=== PATIENT | male | born 1955 | race Caucasian/White ===

== ENCOUNTER 2016-09-19 10:56 | Emergency (ER) | payer BC, OTHER ==
[~2016-09-19] VITALS: Ht 193 cm; Wt 84.6 kg
[~2016-09-19 10:56] MED LIST: GABA-113 PO; OXY/15 PO; PAIN PUMP; TEST1INJ3 IM; VLM5 PO; [UNRECOGNIZED DRUG - CODE] INJ
[2016-09-19 11:08] VITALS: TEMP 36.7; Ht 193 cm; Wt 84.6 kg
[2016-09-19] MEDS ORDERED: DABI150C PO (11:45)
[2016-09-19] MEDS ORDERED: SODIUM CHLORIDE 0.9% 1000ML 1,000 ML IV STA (11:45)
[2016-09-19] MEDS ORDERED: CRD200 PO (11:45)
[2016-09-19] MEDS ORDERED: TPRSR/25 PO (11:45)
[2016-09-19] MEDS ORDERED: ASPI-232 PO (11:46)
--- NOTE | 2016-09-19 11:55 | EMERGENCY ROOM VISIT NOTE ---
History Report prepared by Jewel: Roopa Benavides Under the Supervision of: Dr. Alysha Lepe M.D. First contact with patient: 11:44 Chief Complaint: CONFUSION Stated Complaint: CONFUSION, HEADACHE, DIZZY Nursing Triage Summary: HAS BEEN HAVING MEMORY PROBLEMS AND SOME CONFUSION AFTER STARTING MEDICATION History of Present Illness The patient is a 60 year old male who presents to the Emergency Room with complaints of constant confusion beginning 5 days ago. The patient states that he started taking Pradaxa 6 days ago and the day after he started taking it he began to notice that he was confused. He reports that he could not comprehend the date and the following day he notes that his memory was impaired and he couldn't remember conversations that he had the day before. The patient states that he has a history of atrial fibrillation. The patient states that he was taking his blood pressure and heart rate and was reporting it to his doctor before his doctor sent him in today. The patient complains of a headache, intermittent starry vision, sweating, intermittent chest pain, and back pain. He reports that his chest and upper back pain wakes him up at night occasionally. He denies any known fever, difficulty walking, chills, nausea, vomiting, diarrhea, rectal bleeding, abdominal pain, and neck pain. The patient' s family states that that they have noticed the patient repeating questions but they deny any facial droop and abnormal gait. He notes that he has chronic back pain that he has a pain pump for. Source of History: patient Onset: 5 days ago Position: other (global) Quality: other (confusion) Timing: constant Associated Symptoms: + headache, + chest pain, + back pain, No fevers, No chills, No neck pain, No nausea, No vomiting, No abdominal pain, No diarrhea Note: The patient complains of a intermittent starry vision, sweating. He reports that his back pain wakes him up at night occasionally. He denies any known difficulty walking, rectal bleeding. Review of Systems See HPI for pertinent positives & negatives. A total of 10 systems reviewed and were otherwise negative. Past Medical & Surgical Medical Problems: (1) Cervical stenosis of spinal canal (2) Failed spinal cord stimulator (3) Neuropathic pain Surgical Problems: (1) History of lumbar surgery Family History No pertinent family history stated. Social History Smoking Status: Former Smoker Alcohol Use: none Marital Status: Housing Status: lives with family Current/Historical Medications Scheduled Amiodarone HCl (Amiodarone HCl), 1 TAB PO DAILY Aspirin (Aspir-81), 1 TAB PO DAILY Dabigatran Etexilate Mesylate (Pradaxa), 1 CAP PO BID Metoprolol Succinate (Metoprolol Succinate ER), 2 TAB PO HS Testosterone Enanthate (Testosterone Enanthate), 100 MG IM WK Scheduled PRN Oxycodone Hcl (Oxycodone Hcl), 15-30 MG PO QID PRN for Pain Miscellaneous Medications [Pain Pump] Durable Medical Equipment Syringe/Needle (Disp) 3 Ml (Bd Integra Syringe/3ML/23), DOSE INJ Allergies Coded Allergies: Chlorhexidine (Verified Allergy, Unknown, red and itchy skin, 09/19/16) Physical Exam Vital Signs Date Time Temp Pulse Resp B/P (MAP) Pulse Ox O2 Delivery O2 Flow Rate FiO2 09/19/16 14:50 81 16 132/98 98 09/19/16 12:41 88 16 135/86 97 Room Air 09/19/16 12:14 83 09/19/16 11:59 92 16 135/92 97 Room Air 09/19/16 11:08 36.7 80 18 169/90 97 Room Air Physical Exam Vital signs reviewed. General: Well-appearing, in no significant distress. HEENT: No scleral icterus, PERRLA, neck supple. Atraumatic. Cardiovascular: Irregular and rate controlled, no extra sounds. Pulmonary: Clear to auscultation bilaterally, normal work of breathing. Abdomen: Soft, nontender, nondistended, positive bowel sounds. Musculoskeletal: Atraumatic, no peripheral edema. Neurologic: Patient awake alert and oriented x 3, full strength in all 4 extremities. Cranial nerves 2 through 12 grossly intact. Answering all questions appropriately. Cerebellar exam is intact. Skin: Warm, dry, no rash. Medical Decision & Procedures ER Provider Diagnostic Interpretation: Radiology results as stated below per my review and radiologist interpretation: CT SCAN OF THE BRAIN WITHOUT IV CONTRAST FINDINGS: Brain parenchyma: There is minimal subcortical and periventricular microangiopathic change. There is no hemorrhage, mass effect, or evidence of acute territorial ischemia by CT criteria. Talbot-white matter is preserved. No extra-axial fluid collection is seen. Ventricles, sulci, cisterns: Normal in configuration. Intracranial vasculature: There is minimal atherosclerotic calcification of the cavernous carotid arteries. Calvarium: Unremarkable. Sinuses and mastoids: The visualized paranasal sinuses are clear. The mastoid air cells are well pneumatized. Orbits: The bony orbits are grossly intact. IMPRESSION: There is no hemorrhage, mass effect, or evidence of acute territorial ischemia by CT criteria. Electronically signed by: Willy Mchugh M.D. 09/19/2016 12:15 PM Dictated Date/Time: 09/19/2016 12:13 PM SINGLE VIEW CHEST FINDINGS: 2 AP, portable, upright chest radiographs are compared to study dated 08/14/2015. The examination is degraded by portable technique and patient rotation. The heart is enlarged and there is atherosclerotic calcification of the thoracic aorta. The pulmonary vasculature is noncongested. Findings suggest emphysema. Nonspecific interstitial thickening is similar to previous. No airspace consolidation, large pleural effusion, or pneumothorax is seen. The bony thorax is grossly intact. Fusion hardware is seen in the lower cervical spine. IMPRESSION: Cardiac enlargement and suspect emphysema. There is no acute cardiopulmonary abnormality. Electronically signed by: Willy Mchugh M.D. 09/19/2016 12:25 PM Dictated Date/Time: 09/19/2016 12:24 PM Laboratory Results 09/19/16 11:45 Red Blood Count 5.36, Mean Corpuscular Volume 92.0, Mean Corpuscular Hemoglobin 31.5, Mean Corpuscular Hemoglobin Concent 34.3, Mean Platelet Volume 10.4, Neutrophils (%) (Auto) 79.4, Lymphocytes (%) (Auto) 10.1, Monocytes (%) (Auto) 8.4, Eosinophils (%) (Auto) 0.8, Basophils (%) (Auto) 1.1, Neutrophils # (Auto) 4.18, Lymphocytes # (Auto) 0.53, Monocytes # (Auto) 0.44, Eosinophils # (Auto) 0.04, Basophils # (Auto) 0.06 09/19/16 11:45 Test 09/19/16 11:45 White Blood Count 5.26 K/uL (4.8-10.8) Red Blood Count 5.36 M/uL (4.7-6.1) Hemoglobin 16.9 g/dL (14.0-18.0) Hematocrit 49.3 % (42-52) Mean Corpuscular Volume 92.0 fL (80-100) Mean Corpuscular Hemoglobin 31.5 pg (25-34) Mean Corpuscular Hemoglobin Concent 34.3 g/dl (32-36) Platelet Count 193 K/uL (130-400) Mean Platelet Volume 10.4 fL (7.4-10.4) Neutrophils (%) (Auto) 79.4 % Lymphocytes (%) (Auto) 10.1 % Monocytes (%) (Auto) 8.4 % Eosinophils (%) (Auto) 0.8 % Basophils (%) (Auto) 1.1 % Neutrophils # (Auto) 4.18 K/uL (1.4-6.5) Lymphocytes # (Auto) 0.53 K/uL (1.2-3.4) Monocytes # (Auto) 0.44 K/uL (0.11-0.59) Eosinophils # (Auto) 0.04 K/uL (0-0.5) Basophils # (Auto) 0.06 K/uL (0-0.2) RDW Standard Deviation 44.8 fL (36.4-46.3) RDW Coefficient of Variation 13.3 % (11.5-14.5) Immature Granulocyte % (Auto) 0.2 % Immature Granulocyte # (Auto) 0.01 K/uL (0.00-0.02) Prothrombin Time 14.4 SECONDS (9.0-12.0) Prothromb Time International Ratio 1.3 (0.9-1.1) Activated Partial Thromboplast Time 44.9 SECONDS (21.0-31.0) Partial Thromboplastin Ratio 1.7 Anion Gap 9.0 mmol/L (3-11) Est Creatinine Clear Calc Drug Dose 85.5 ml/min Estimated GFR () 84.1 Estimated GFR (Non- 72.6 BUN/Creatinine Ratio 14.5 (10-20) Calcium Level 8.6 mg/dl (8.5-10.1) Magnesium Level 2.2 mg/dl (1.8-2.4) Total Bilirubin 2.6 mg/dl (0.2-1) Direct Bilirubin 0.4 mg/dl (0-0.2) Aspartate Amino Transf (AST/SGOT) 26 U/L (15-37) Alanine Aminotransferase (ALT/SGPT) 36 U/L (12-78) Alkaline Phosphatase 82 U/L (45-117) Troponin I < 0.015 ng/ml (0-0.045) Total Protein 6.9 gm/dl (6.4-8.2) Albumin 3.8 gm/dl (3.4-5.0) Laboratory results per my review. Medications Administered Medications (Trade) Dose Ordered Sig/Maco Route Start Time Stop Time Status Last Admin Dose Admin Sodium Chloride 1,000 ml @ 125 mls/hr Q8H STAT IV 09/19/16 11:45 09/19/16 15:05 DC 09/19/16 12:41 125 MLS/HR ECG Indication: chest pain Rate (beats per minute): 93 Rhythm: atrial flutter Findings: RBBB (incomplete), left axis deviation, other (variable AV block, t wave flattening bilaterally) ED Course 1144: Past medical records reviewed. The patient was evaluated in room B10. A complete history and physical examination was performed. 1145: Sodium Chloride 1000 ml @ 125 mls/hr IV. 1412: I reviewed the patient's case with Dr. Irby of Cardiology at [facility]. He said to stop the amiodarone and increase the metoprolol. He confirms that the patient is on a significant amount of narcotics for pain control. 1432: Upon reevaluation, the patient appeared to have improvement of his symptoms. I discussed findings with the patient. He verbalized agreement of the treatment plan. The patient was discharged home. Medical Decision Differential diagnosis: Etiologies such as metabolic, infection, hypoglycemia, electrolyte abnormalities , cardiac sources, intracerebral event, toxicologic, neurologic, as well as others were entertained. This pt was evaluated and appeared to be in no distress. IV access was obtained and lab work was drawn. Pt was hydrated with NSS. EKG reveals a rate controlled atrial flutter. CXR is clear. CT head reveals no acute intracranial abnl. Case was d/w Dr Butts, at this time the pt will be taken off of amiodarone and metoprolol will be increased. Pt is apparently on significant doses of narcotics which is likley contributing to the symptoms. Pt will f.u closely with PCP and Dr Butts for further management. He will return to the ED for worsening of symptoms or any medical concerns. Consults Time Called: 1410 Consulting Physician: Dr. Irby - Cardiology Returned Call: 1410 I reviewed the patient's case with Dr. Irby of Cardiology at [facility]. He said to stop the amiodarone and increase the metoprolol. He confirms that the patient is on a significant amount of narcotics for pain control. Impression Primary Impression: Altered mental status Scribe Attestation The scribe's documentation has been prepared under my direction and personally reviewed by me in its entirety. I confirm that the note above accurately reflects all work, treatment, procedures, and medical decision making performed by me. Departure Information Dispostion Home / Self-Care Referrals Abner Wetzel M.D. (PCP) Forms HOME CARE DOCUMENTATION FORM, IMPORTANT VISIT INFORMATION, WORK / SCHOOL INSTRUCTIONS Patient Instructions My [facility] Additional Instructions Diagnosis: Altered mental status Discontinue the amiodarone. Increase the metoprolol succinate to 75 mg once daily. Continue Pradaxa and aspirin as prescribed. Follow-up with cardiology this week for reevaluation, contact sooner if symptoms persist. Return to the ED for worsening of symptoms or any medical concerns,
[2016-09-19 12:00] LABS: BASO % 1.1 %; BASO ABS # 0.06 K/uL (0-0.2); COMPLETE YES; EOS % 0.8 %; HEMATOCRIT 49.3 % (42-52); IG% 0.2 %; LYMPH % 10.1 %; LYMPH ABS # 0.53 K/uL (1.2-3.4); MEAN CORPUSCULAR HEMOGLOBIN 31.5 pg (25-34); MEAN CORPUSCULAR HGB CONC 34.3 g/dl (32-36); MEAN PLATELET VOLUME 10.4 fL (7.4-10.4); MONO % 8.4 %; NEUT % 79.4 %; PLATELET COUNT 193 K/uL (130-400); RED BLOOD COUNT 5.36 M/uL (4.7-6.1); WHITE BLOOD COUNT 5.26 K/uL (4.8-10.8)
[2016-09-19 12:10] LABS: INR 1.3 (0.9-1.1); PARTIAL THROMBOPLASTIN RATIO 1.7; PROTHROMBIN TIME (PATIENT) 14.4 SECONDS (9.0-12.0)
--- NOTE | 2016-09-19 12:16 | DIAGNOSTIC IMAGING REPORT ---
CT SCAN OF THE BRAIN WITHOUT IV CONTRAST CLINICAL HISTORY: Change in mental status. COMPARISON STUDY: CT of the brain dated 11/11/2008. TECHNIQUE: Unenhanced axial CT scan of the brain is performed from the vertex to the skull base. CT DOSE: 614.27 mGy.cm FINDINGS: Brain parenchyma: There is minimal subcortical and periventricular microangiopathic change. There is no hemorrhage, mass effect, or evidence of acute territorial ischemia by CT criteria. Talbot-white matter is preserved. No extra-axial fluid collection is seen. Ventricles, sulci, cisterns: Normal in configuration. Intracranial vasculature: There is minimal atherosclerotic calcification of the cavernous carotid arteries. Calvarium: Unremarkable. Sinuses and mastoids: The visualized paranasal sinuses are clear. The mastoid air cells are well pneumatized. Orbits: The bony orbits are grossly intact. IMPRESSION: There is no hemorrhage, mass effect, or evidence of acute territorial ischemia by CT criteria. Electronically signed by: Willy Mchugh M.D. 09/19/2016 12:15 PM Dictated Date/Time: 09/19/2016 12:13 PM
--- NOTE | 2016-09-19 12:27 | DIAGNOSTIC IMAGING REPORT ---
SINGLE VIEW CHEST CLINICAL HISTORY: Change in mental status. FINDINGS: 2 AP, portable, upright chest radiographs are compared to study dated 08/14/2015. The examination is degraded by portable technique and patient rotation. The heart is enlarged and there is atherosclerotic calcification of the thoracic aorta. The pulmonary vasculature is noncongested. Findings suggest emphysema. Nonspecific interstitial thickening is similar to previous. No airspace consolidation, large pleural effusion, or pneumothorax is seen. The bony thorax is grossly intact. Fusion hardware is seen in the lower cervical spine. IMPRESSION: Cardiac enlargement and suspect emphysema. There is no acute cardiopulmonary abnormality. Electronically signed by: Willy Mchugh M.D. 09/19/2016 12:25 PM Dictated Date/Time: 09/19/2016 12:24 PM
[2016-09-19 12:31] LABS: BUN/CREATININE RATIO 14.5 (10-20); CALCIUM 8.6 mg/dl (8.5-10.1); CREATININE 1.1 mg/dl (0.60-1.40); MAGNESIUM 2.2 mg/dl (1.8-2.4); POTASSIUM 4.6 mmol/L (3.5-5.1)
[2016-09-19 14:50] VITALS: BP 132/98; PULSE 81; O2SAT 98
== END 2016-09-19 14:52 | disposition home or self-care (01) ==
LOC: C.EDB 10:58
DX: R41.82 Altered mental status, unspecified (principal); I48.92 Unspecified atrial flutter; Z98.890 Other specified postprocedural states; Z87.891 Personal history of nicotine dependence; Z79.82 Long term (current) use of aspirin; Z79.899 Other long term (current) drug therapy; Z88.8 Allergy status to other drugs, medicaments and biological substances

== ENCOUNTER → 2016-11-11 | Outpatient (CLI) | payer BC ==
[~2016-11-11] MED LIST changes: +ASPI-232 PO; +CRD200 PO; +DABI150C PO; -GABA-113 PO; +OPTIRAY 320 IV PRN; +TPRSR/25 PO; -VLM5 PO
--- NOTE | 2016-11-11 12:33 | DIAGNOSTIC IMAGING REPORT ---
ABD/PELVIS COMBO CLINICAL HISTORY: 60 years-old Male presenting with WEIGHT LOSS,ANOREXIA,ABD PAIN W/EATING. TECHNIQUE: Multidetector CT of the abdomen and pelvis was performed before and after the administration of intravenous contrast. IV contrast: 120 mL of Optiray 320. A dose lowering technique was used consistent with the principles of ALARA (as low as reasonably achievable). COMPARISON: None. CT DOSE (mGy.cm): The estimated cumulative dose is 2622.93 mGycm. FINDINGS: Supervisor Front topogram: Posterior fusion hardware in the lower lumbar spine. External devices project over the right lower quadrant. Lung bases: Lung bases clear. No pericardial or pleural effusion. Liver: Normal morphology. No liver lesion. Patent hepatic vasculature. Biliary: Mild intrahepatic and extra hepatic biliary ductal dilatation, which may in part be due to a reservoir effect in the post cholecystectomy state. Surgically absent gallbladder. Pancreas: Dilatation of the pancreatic duct to the level of the ampulla of Vater. No evidence of calculus in the region of the ampulla Vater. No demonstrable mass lesion in the pancreatic head. Spleen: Normal. Adrenal glands: Normal. Kidneys and ureters: Normal. No hydronephrosis. Gastrointestinal tract: Normal. No bowel obstruction. Peritoneal cavity: Trace free fluid in the pelvis. Bladder: Mild circumferential bladder wall thickening. Pelvic organs: Prostate enlargement likely secondary to benign prostatic hyperplasia. Vasculature: Minimal atherosclerosis of the normal caliber abdominal aorta. Lymph nodes: No enlarged lymph nodes in the abdomen or pelvis. Abdominal wall: Serpiginous soft tissue in the inguinal canal suggestive of varicoceles. Subcutaneous medical office specialist in the right lower quadrant with an epidural lead entering the spinal canal the lumbar region. Musculoskeletal: Posterior transpedicular bilateral screw and yahaira fixation of L4-S1 with laminectomy of L5 and interbody spacer at L5-S1. Degenerative changes of the lumbar region. IMPRESSION: 1. Biliary and pancreatic ductal dilatation without evidence of the pancreatic head. Differential considerations include benign stricture of the ampulla of Vater. Further evaluation with ERCP could be considered as clinically warranted. 2. Mild circumference of bladder wall thickening could represent chronic outlet obstruction. 3. Possible varicoceles. Electronically signed by: Sameer Gallegos M.D. 11/11/2016 12:31 PM Dictated Date/Time: 11/11/2016 12:21 PM
== END | disposition home or self-care (01) ==
LOC: C.CTS 11:46
PROVIDERS: ATTEND Internal Medicine Gastroenterology
DX: R17 Unspecified jaundice (principal)

== ENCOUNTER → 2017-05-06 | Outpatient (CLI) | payer BC, OTHER ==
[~2017-05-06] MED LIST changes: +ASPCH81X PO; +LOSA1TAB PO; +METO-217 PO; -OPTIRAY 320 IV PRN
== END | disposition home or self-care (01) ==
LOC: C.RDSM 09:55
PROVIDERS: ATTEND Orthopaedic Surgery Sports Medicine
DX: G56.01 Carpal tunnel syndrome, right upper limb (principal)

== ENCOUNTER → 2017-05-09 | Day surgery (SDC) | payer OTHER ==
[2017-05-08 14:49] VITALS: Ht 193 cm; Wt 86.4 kg
[~2017-05-09] VITALS: Ht 193 cm; Wt 86.4 kg
[~2017-05-09] MED LIST changes: -ASPI-232 PO; +ATROPINE SULFATE 0.1 MG/ML 5ML SYR IV PRN; +BUPIVACAINE/EPINEPHRINE 0.5% MPF 1:200,000 30 ML VIAL ONE; +CEFAZOLIN 2000MG IV PUSH 10 ML IV SCH; -CRD200 PO; -DABI150C PO; +DEXAMETHASONE SOD INJ 4 MG/ML VIAL IV PRN; +EpHEDrine SULFATE INJ 50 MG/ML AMP IV PRN; +EpHEDrine SULFATE INJ 50 MG/ML AMP ONE; +FENTANYL CITRATE INJ 50 MCG/1 ML 2 ML VIAL IV PRN; +FENTANYL CITRATE INJ 50 MCG/1 ML 2 ML VIAL ONE; +KETOROLAC TROMETHAMINE 30 MG/ML VIAL IV. PRN; +LABETALOL HCL IV 5 MG/ML 20ML IV PRN; +LACTATED RINGER'S 1000ML 1,000 ML IV SCH; +LIDOCAINE HCL 1% 20 ML VIAL ONE; +LIDOCAINE HCL 2% 2 ML VIAL (20MG/ML) ONE; +METOCLOPRAMIDE HCL INJ 5 MG/ML 2 ML VIAL IV PRN; +MIDAZOLAM HCL 1 MG/ML 2ML VIAL ONE; +MoRPHine SULFATE 10 MG/ML CARP/VIAL IV PRN; +MoRPHine SULFATE 2 MG/ML CARP IV PRN; +MoRPHine SULFATE 4 MG/ML 1 ML CARP\\VIAL IV PRN; +ONDANSETRON INJ 2 MG/ML 2 ML VIAL IV PRN; +OXYCODONE/ACETAMINOPHEN 5-325 TAB PO PRN; +PHENYLEPHRINE 100MCG/ML 5ML SYR IV PRN; +PROPOFOL IV EMULSION 10 MG/ML 20 ML VIAL IV ONE; +SODIUM CHLORIDE 0.9% INJ 10 ML VIAL ONE; -TPRSR/25 PO; -[UNRECOGNIZED DRUG - CODE] INJ
--- NOTE | 2017-05-09 12:21 | History & Physical Bridge - SC ---
H&P Re-Evaluation Bridge Note: I have examined the patient, reviewed the History & Physical and in the interval since the performance of the History & Physical I have noted the following changes of clinical significance: No changes noted
--- NOTE | 2017-05-09 13:07 | Discharge Instructions-SurgCtr ---
Discharge Instructions Date of Service May 09, 2017. Visit Reason for Visit: Right Carpal Tunnel Syndrome Discharge Discharge Diagnosis / Problem: Status post right endoscopic Carpal Tunnel Release Discharge Goals Goal(s): Decrease discomfort, Improve function, Increase independence Medications Stopped Medications Name(s): asa stopped. last dose 3 days ago. Activity Recommendations Activity Limitations: per Instructions/Follow-up section Exercise/Sports Limitations: rest today (No heavy lifting 2 weeks) May Resume Sexual Activity: when tolerated Shower/Bathe: may shower/bathe in 3 days Driving or Machine Use: Not while on Narcotics Anesthesia . Post Anesthesia Instructions: If you have had General Anesthesia or IV Sedation: * Do not drive today. * Resume driving when surgeon permits. * Do not make important decisions or sign legal documents today. * Call surgeon for: 1. Temperature elevations greater than 101 degrees F. 2. Uncontrollable pain. 3. Excessive bleeding. 4. Persistent nausea and vomiting. 5. Medication intolerance (nausea, vomiting or rash). * For nausea and vomiting use only clear liquids such as: tea, soda, bouillon until nausea subsides, then gradually increase diet as tolerated. * If you have any concerns or questions, call your surgeon's office. If physician is unavailable and it is an emergency, call 911 or go to the nearest emergency room. . Instructions / Follow-Up Instructions / Follow-Up Dr. Carlisle in 10-15 days. PT in 3-5 days. Diet Recommendations Home Diet: resume previous diet Procedures Procedures Performed: Right Endoscopic Carpal Tunnel Release Pending Studies Studies pending at discharge: no Medical Emergencies . Who to Call and When: Medical Emergencies: If at any time you feel your situation is an emergency, please call 911 immediately. . Non-Emergent Contact Non-Emergency issues call your: Surgeon Call Non-Emergent contact if: temperature is above 101.5, your pain is not controlled, wound has increased drainage, wound has increased redness . . "Provider Documentation" section prepared by Stanford Carlisle. .
--- NOTE | 2017-05-09 13:08 | [facility] Post Operative Brief Note ---
Immediate Operative Summary Operative Date May 09, 2017. Pre-Operative Diagnosis Right Carpal Tunnel Syndrome Post-Operative Diagnosis same Procedure(s) Performed Right Endoscopic Carpal Tunnel Release Surgeon Dr. Carlisle Foreign Exchange Services Manager Surgeon(s) Mellisa Roberts , Fellow Estimated Blood Loss 2ML Findings Consistent with Post-Op Diagnosis Fluids (cc crystalloids) 900 Specimens NONE Drains None Anesthesia Type MAC Complication(s) none Disposition Disposition: Recovery Room / PACU (Stable)
--- NOTE | 2017-05-09 13:09 | [facility] Operative Report ---
Operative Report Operative Date May 09, 2017. Pre-Operative Diagnosis Right Carpal Tunnel Syndrome Post-Operative Diagnosis same Procedure(s) Performed Right Endoscopic Carpal Tunnel Release Surgeon Dr. Carlisle Boiler Fitter Surgeon(s) Mellisa Roberts , Fellow Estimated Blood Loss 2ML Findings Thickened Right Transverse Carpal Ligament. Fluids (cc crystalloids) 900 Specimens NONE Drains n/a Anesthesia Local + sedation Complication(s) None Disposition Recovery Room / PACU (Stable) Implants n/a Indications The patient is a 61 year old male with long standing right carpal tunnel syndrome that has failed conservative treatment. I recommended endoscopic right carpal tunnel release. The patient understands the risks of surgery, which include but are not limited to: bleeding, infection, re-operation, damage to nerves and arteries, continued pain, and stiffness. The patient understands all of these instructions and explanations, all of their questions have been satisfactorily addressed. The patient has elected to proceed with surgery and the informed consent was signed. Description of Procedure The patient was taken to the Operating Room and placed in the supine position on the operating table. After adequate sedation was administered a multidisciplinary time-out was performed identifying my initials on the right upper extremity as the correct and operative limb. Prior to the incisions being made, 2 grams of intravenous Ancef were given. The right upper extremity was prepped and draped in the usual orthopaedic sterile fashion. A Median nerve block was performed in the standard manner, along with superficial injection of the planned incisions with 10 cc of a 50:50 mix of 1% Lidocaine plain and 0.5% Bupivacaine plain. The Pisiform was marked and the planned transverse incision was marked 0.5 cm proximal and 1.5 cm radial, approximately 1 cm in length. An Esmarch was used to exsanguinate the limb and the tourniquet was inflated to 250mmHg. The planned exit portal was made in- line with the Ring Finger crossing Caplans line. The Transverse incision was carried down through the skin and blunt dissect was carried down through the fascia, protecting any superficial vessels. A freer was used to expose the carpal tunnel to the point of the distal exit portal. The slotted cannula was introduced from proximal to distal and the exit portal was incised and the slotted cannula was delivered out the exit portal. The hand was placed on the extension bump. The arthroscope was placed from proximal to distal to view the Transverse Carpal Ligament (TCL). Multiple Q-tips were used for better exposure. The most distal aspect of the TCL was incised with forward cutting blade. Then the Triangular blade was used to incise the TCL in the mid-portion. The retrograde scalpel was used to connect the two incisions in the TCL. At this point the arthroscope was switched to view from the distal to proximal and the proximal portion of the TCL was incised. Care was taken not incise the skin. The forward cutting blade was used to incise the proximal portion. Then the retrograde blade connected the two incisions in the TCL. The triangular blade was used to incise any remaining fibers of the TCL. The entire release was visualized with the arthroscope. The wounds were copiously irrigated. The trocar was replaced prior to removing the cannula. Both portals were closed with 3-0 Nylon. The incisions were dressed with Xeroform gauze, sterile gauze, sterile Webril, and an ANH bandage. The sponge and needle counts were correct. The patient was taken to the recovery room in stable condition. Post-op Instructions: Pain medicine prescription was given pre-operatively to be taken as needed. The patient will elevate and ice. No heavy lifting with his right upper extremity. The patient will follow up with me in 10-15 days. While waking up the patient motor was assessed and he had full function of his median, radial, ulnar, AIN, and PIN, he had opposition of his thumb to his small finger. I attest to the content of the Intraoperative Record and any orders documented therein. Any exceptions are noted below.
[2017-05-09 13:14] VITALS: TEMP 36.8
--- NOTE | 2017-05-09 13:31 | Anesthesia Progress Nt - [facility] ---
Anesthesia Post Op Note Date & Time May 09, 2017 at 13:31 Vital Signs Pain Intensity: 0 Vital Signs Past 12 Hours Date Time Temp Pulse Resp B/P (MAP) Pulse Ox O2 Delivery O2 Flow Rate FiO2 05/09/17 13:14 36.8 64 16 103/55 (71) 95 Room Air 05/09/17 10:59 36.8 65 16 107/66 (80) 98 Room Air Notes Mental Status: alert / awake / arousable, participated in evaluation Pt Amnestic to Procedure: Yes Nausea / Vomiting: adequately controlled Pain: adequately controlled Airway Patency, RR, SpO2: stable & adequate BP & HR: stable & adequate Hydration State: stable & adequate Anesthetic Complications: no major complications apparent
[2017-05-09 13:39] VITALS: BP 111/65; PULSE 61; O2SAT 98
== END | disposition home or self-care (01) ==
LOC: X.SURG 10:47
PROVIDERS: ATTEND Orthopaedic Surgery Sports Medicine
DX: G56.01 Carpal tunnel syndrome, right upper limb (principal); G47.33 Obstructive sleep apnea (adult) (pediatric)

== ENCOUNTER 2018-09-15 10:02 | Observation (INO) ==
--- NOTE | 2018-09-10 13:14 | History & Physical Report ---
Date of Service September 10, 2018 Assessment & Plan (1) Acute drug withdrawal syndrome: (2) Presence of intrathecal pump: As the patient has been experiencing acute withdrawal symptoms over the last 3 weeks, there have been several tests performed. Thoracolumbar xray is unremarkable. A catheter dye study was attempted but could not aspirate from the port on several attempts. MRI was negative for a granuloma. We have had a thorough discussion on other causes for withdrawal and it has been agreed on to revise/replace the intrathecal catheter. Intrathecal pump may require replacement as well. Risks have been discussed including CSF leak, bleeding, and injury to nerves. Surgery has been described and he would like to proceed. History of Present Illness Chief Complaint: Chronic lumbar pain Primary Care Provider: Abner Wetzel MD Mr. Schafer is a 62 year old white male that has been seen by the [facility] for acute withdrawal of an intrathecal pump. For 3 weeks he has been experiencing withdrawal symptoms of nausea, chills, irritability, difficulty sleeping, increased pain, excessive yawning, and photophobia. Patient had the intrathecal pump and catheter delivery system [place] [address] Ivey for lumbar post-laminectomy syndrome. Dr. Villafana is currently performing his pump refills. Pain is rated 4/10 at its best and 8/10 at its worst. The intrathecal pump is set to deliver Hydromorphone 15mg/day and Bupivacaine 7.5mg/day. He does also chronically take oral Oxycodone 15mg 4 times daily. He denies any radicular symptoms, fevers, diarrhea, constipation, dizziness, urinary sx, falls. Allergies Allergy/AdvReac Type Severity Reaction Status Date / Time chlorhexidine Allergy Mild red and Verified 09/10/18 13:39 itchy skin Home Medications Home Medications Medication Instructions Recorded Confirmed Type clonidine HCl 0.2 mg PO BID 09/04/18 09/10/18 History ibuprofen 200 mg PO Q6H PRN 09/04/18 09/10/18 History losartan 25 mg PO QAM 09/04/18 09/10/18 History metoprolol succinate 50 mg PO BID 09/04/18 09/10/18 History naloxone [Narcan] 1 sprays INTNAS ONCE PRN #2 ea 09/04/18 09/10/18 Rx testosterone cypionate 0.5 mg IM WK 09/04/18 09/10/18 History aspirin 81 mg tablet,delayed 81 mg PO QAM 09/10/18 09/10/18 History release morphine ER 30 mg tablet,extended 30 mg PO Q8H #21 tab 09/10/18 09/10/18 Rx release oxycodone 15 mg tablet 15 mg PO Q6H PRN #30 tab 09/10/18 09/10/18 Rx Past Med/Surg History Medical History Difficult airway for intubation 09/04/15 - Glidescope #4, ETT #8.0, Neck kept in neutral position 02/03/13 - Glidescope #4, ETT #7.5 Atrial fibrillation IN THE PAST Acute drug withdrawal syndrome (Acute) Neuropathic pain Cervical stenosis of spinal canal Failed spinal cord stimulator Surgical History H/O cardiac radiofrequency ablation 2 YEARS AGO AT [facility] WITH DR. HUBER MENDOZA History of adenoidectomy History of tonsillectomy History of tooth extraction History of appendectomy History of cholecystectomy History of colonoscopy History of esophagogastroduodenoscopy (EGD) S/P insertion of spinal cord stimulator INSERTION AND REMOVAL Fusion of spine LUMBAR FUSION X 1 CERVICAL FUSION X 2 (ROM OF NECK WNL) 09/04/15 - Glidescope #4, ETT #8.0, Neck kept in neutral position History of carpal tunnel release RT/LEFT History of surgery IMPLANTED PAIN PUMP Presence of intrathecal pump Cervical vertebral fusion 02/03/13 - Glidescope #4, ETT #7.5 S/P lumbar spine operation Family History Other No significant family history Social History Preferred Language: [place] Communication Ability: Effective Visual Impairment: No Limitations Hearing Ability: Normal Beliefs That Will Affect Care: None marital status: Current Living Situation: Spouse current occupational status: employed Feels Safe at Home: Yes Smoking Status: Former smoker Tobacco Type: cigarettes Cigarettes Per Day: ~1ppd x 15 years Second Hand Exposure: No Hx Alcohol Use: No Hx Substance Use: No Review of Systems Review of Systems: All systems reviewed & are unremarkable except as noted in HPI & below Physical Exam Physical Exam: GENERAL: Thin 62 year old white male. Speech and cognition is intact. Mood and affect is appropriate. In no acute distress. HEAD: Normocephalic; atraumatic. EYES: Pupils are round, equal, and reactive to light; EOM intact. ENT: No external ear discharge or lesions. No rhinorrhea or epistaxis. No mucosal lesions. NECK: Decreased ROM; trachea is midline; no cervical lymphadenopathy. CARDIO: Regular rate and rhythm. No murmurs, rubs, or gallops. PULM: Clear to auscultation. No wheezes, rales, or rhonchi. CHEST: Regular chest respiration and excursion. ABDOMEN: Intrathecal pump is located in the RLQ without any mobility noted. EXTREMITIES: 5/5 strength of the bilateral upper and lower extremities. BACK: Well healed surgical incision. Mild diffuse lumbosacral tenderness. No paravertebral, quadratus lumborum, gluteal, or piriformis muscle spasm or myoneural trigger points noted. NEURO: CN II-XII grossly intact with no focal deficits noted. Normal gait. SKIN: No lesions, erythema, or rashes noted.
--- NOTE | 2018-09-10 14:08 | Anesthesiology Consultation ---
Date of Service September 10, 2018 Assessment & Plan (1) Encounter for pre-operative examination: - Patient has a known history of difficult intubation requiring glidescope #4 due to limited ROM from previous cervical fusion. Chart Review Chart Review: Acceptable Risk for Surgery and Patient seen in Pre Admission Testing Consults Requested none Teaching & Discussion Pre-Anesthesia Teaching/Discussion Notes: Instructed NPO after midnight before surgery, except medications with 15 cc of water. Medication instructions provided according to the PAT guidelines. History Surgery Operation Date: 09/15/18 10:20 Proposed Procedures p Revision or Replacement of Intrathecal Catheter - Kavita Alvarez DO Height/Weight Height: 6 ft 4 in Weight: 80.3 kg Allergies Allergy/AdvReac Type Severity Reaction Status Date / Time chlorhexidine Allergy Mild red and Verified 09/10/18 13:39 itchy skin Medications Home Medications Medication Instructions Recorded Confirmed Last Taken clonidine HCl 0.2 mg PO BID 09/04/18 09/10/18 09/04/18 ibuprofen 200 mg PO Q6H PRN 09/04/18 09/10/18 09/04/18 12:00 800mg losartan 25 mg PO QAM 09/04/18 09/10/18 09/04/18 metoprolol succinate 50 mg PO BID 09/04/18 09/10/18 09/04/18 naloxone [Narcan] 1 sprays INTNAS ONCE PRN #2 ea 09/04/18 09/10/18 Unknown testosterone cypionate 0.5 mg IM WK 09/04/18 09/10/18 09/04/18 aspirin 81 mg tablet,delayed 81 mg PO QAM 09/10/18 09/10/18 Unknown release morphine ER 30 mg tablet,extended 30 mg PO Q8H #21 tab 09/10/18 09/10/18 Unknown release oxycodone 15 mg tablet 15 mg PO Q6H PRN #30 tab 09/10/18 09/10/18 Unknown Past Medical History Medical History Acute drug withdrawal syndrome (Acute) Neuropathic pain (Chronic) Cervical stenosis of spinal canal (Chronic) Failed spinal cord stimulator (Chronic) Atrial fibrillation IN THE PAST Difficult airway for intubation 09/04/15 - Glidescope #4, ETT #8.0, Neck kept in neutral position 02/03/13 - Glidescope #4, ETT #7.5 Exercise / Class Metabolic Activity III < 4 Walking/Shop/Light housework (Very limited due to current amount of back pain. Is able to be more active when pump is functioning. Able to climb FOS. Denies CP or SOB. ) Past Family History Family History Other No significant family history Past Surgical History Surgical History Presence of intrathecal pump (Chronic) Cervical vertebral fusion (Chronic) 02/03/13 - Glidescope #4, ETT #7.5 S/P lumbar spine operation (Chronic) Fusion of spine LUMBAR FUSION X 1 CERVICAL FUSION X 2 (ROM OF NECK WNL) 09/04/15 - Glidescope #4, ETT #8.0, Neck kept in neutral position H/O cardiac radiofrequency ablation 2 YEARS AGO AT [facility] WITH DR. HUBER MENDOZA History of adenoidectomy History of appendectomy History of carpal tunnel release RT/LEFT History of cholecystectomy History of colonoscopy History of esophagogastroduodenoscopy (EGD) History of surgery IMPLANTED PAIN PUMP History of tonsillectomy History of tooth extraction S/P insertion of spinal cord stimulator INSERTION AND REMOVAL Past Anesthesia History No Hx of Anesthesia Complications and No Family Hx of Anesthesia Complications History of PONV No Hx of PONV and No Hx of Motion Sickness Social History Smoking Status: Former smoker tobacco type: cigarettes Smoking cigarettes per day: ~1ppd x 15 years Do You Dip or Chew Tobacco: No Smoking End Date: 30 YEARS AGO Hx Alcohol Use: No Hx Substance Use: No substance use type: does not use Review of Systems Patient denies chest pain, shortness of breath, dyspnea on exertion, reflux, cough, wheezing, palpitations. +Joint Pain (Back) Physical Exam Vital Signs BP: 144/76 P: 56 R: 16 T: 98.7 SPO2: 99% on RA ENMT Thyromental Distance: > or= 3.5 Finger Breadths (4) Mallampati Class: I Neck normal visual inspection, trachea midline and + limited neck extension Respiratory normal respiratory effort Auscultation: lungs clear to auscultation bilaterally Cardiovascular Rate/Rhythm: regular rate and regular rhythm Heart Sounds: no murmur Vessels: no carotid bruit Musculoskeletal Spine: + limited cervical ROM Neurologic moves all extremities Psychiatric Orientation: alert and oriented x 3 Testing Laboratory Results Laboratory Tests 09/04/18 09/04/18 13:39 13:39 WBC 4.87 Hgb 14.6 Hct 41.3 L Plt Count 172 Sodium 140 Potassium 3.9 Chloride 105 Carbon Dioxide 29 BUN 19 H Creatinine 1.22 Glucose 211 H Electrocardiogram Date: 09/04/18 Findings: + NSR @ (61) Left axis deviation Incomplete RBBB Left anterior fascicular block When compared with ECG of 09/19/16, Sinus rhythm has replace atrial flutter, ventricular rate has decreased by 32 bpm, and T wave inversion is no longer evident in lateral leads. Chest X-Ray Date: 09/04/18 Findings: + NAD FINDINGS: Cardiomediastinal silhouette normal on the current exam. Lungs and pleural spaces clear. Degenerative changes of the thoracic spine. Partially visualized anterior cervical fusion hardware. Upper abdomen normal. IMPRESSION: 1. No acute cardiopulmonary disease. Echocardiogram Date: 04/09/17 EF: 60% LV Function: normal RWMA: + none Other Findings: + diastolic dysfunction (Grade I); no LVH Valvular Disease: + no significant valvular disease Normal LV size and systolic function with no RWMA Normal LV global longitudinal strain. No LVH Grade I diastolic dysfunction of the left ventricle (impaired relaxation pattern) Normal left atrial pressure Moderately dilated left atrium Top normal RV size with normal systolic function Moderately dilated right atrium Normal pulmonary pressures Since previous study performed 09/10/16, patient has had an atrial fibrillation ablation (01/14/17) and is now with sinus bradycardia. LV systolic function has improved from 35-40% to 60% and RV systolic function has improved and is now normal.
--- NOTE | 2018-09-10 14:13 | PAT Medication Instructions ---
Medication Instructions Date of Service September 10, 2018 Home Medications Medication Instructions Recorded naloxone [Narcan] 1 sprays INTNAS ONCE PRN #2 ea 09/04/18 morphine ER 30 mg tablet,extended 30 mg PO Q8H #21 tab 09/10/18 release oxycodone 15 mg tablet 15 mg PO Q6H PRN #30 tab 09/10/18 clonidine HCl 0.2 mg PO BID ibuprofen 200 mg PO Q6H NEEDED losartan 25 mg PO QAM metoprolol succinate 50 mg PO BID naloxone [Narcan] 1 sprays INTNAS ONCE NEEDED testosterone cypionate 0.5 mg IM WK aspirin 81 mg tablet,delayed release 81 mg PO QAM morphine ER 30 mg tablet,extended release 30 mg PO Q8H oxycodone 15 mg tablet 15 mg PO Q6H NEEDED Continue as directed naloxone [Narcan] 1 sprays INTNAS ONCE NEEDED testosterone cypionate 0.5 mg IM WK ASK your prescriber and surgeon ibuprofen 200 mg PO Q6H NEEDED aspirin 81 mg tablet,delayed release 81 mg PO QAM DO NOT take the morning of surgery losartan 25 mg PO QAM Take morning of surgery With a small sip of water, OTHERWISE NOTHING TO EAT OR DRINK AFTER MIDNIGHT: clonidine HCl 0.2 mg PO BID metoprolol succinate 50 mg PO BID morphine ER 30 mg tablet,extended release 30 mg PO Q8H (must stop 4 hours before surgery) oxycodone 15 mg tablet 15 mg PO Q6H NEEDED (if needed, stop 4 hours before surgery) Take evening before surgery clonidine HCl 0.2 mg PO BID metoprolol succinate 50 mg PO BID morphine ER 30 mg tablet,extended release 30 mg PO Q8H oxycodone 15 mg tablet 15 mg PO Q6H NEEDED Other Notes If you have any questions please call us at [phone] or [phone] or [phone] or [phone]
[~2018-09-15 10:02] MED LIST changes: -ASPCH81X PO; -ATROPINE SULFATE 0.1 MG/ML 5ML SYR IV PRN; -BUPIVACAINE/EPINEPHRINE 0.5% MPF 1:200,000 30 ML VIAL ONE; +CEFAZOLIN 2000MG 2,000 MG/15 ML SYR IV SCH; -CEFAZOLIN 2000MG IV PUSH 10 ML IV SCH; -DEXAMETHASONE SOD INJ 4 MG/ML VIAL IV PRN; -EpHEDrine SULFATE INJ 50 MG/ML AMP IV PRN; -EpHEDrine SULFATE INJ 50 MG/ML AMP ONE; -FENTANYL CITRATE INJ 50 MCG/1 ML 2 ML VIAL IV PRN; -FENTANYL CITRATE INJ 50 MCG/1 ML 2 ML VIAL ONE; -KETOROLAC TROMETHAMINE 30 MG/ML VIAL IV. PRN; -LABETALOL HCL IV 5 MG/ML 20ML IV PRN; -LACTATED RINGER'S 1000ML 1,000 ML IV SCH; -LIDOCAINE HCL 1% 20 ML VIAL ONE; -LIDOCAINE HCL 2% 2 ML VIAL (20MG/ML) ONE; -LOSA1TAB PO; +LR 15ML/HR IV SCH; -METO-217 PO; -METOCLOPRAMIDE HCL INJ 5 MG/ML 2 ML VIAL IV PRN; -MIDAZOLAM HCL 1 MG/ML 2ML VIAL ONE; -MoRPHine SULFATE 10 MG/ML CARP/VIAL IV PRN; -MoRPHine SULFATE 2 MG/ML CARP IV PRN; -MoRPHine SULFATE 4 MG/ML 1 ML CARP\\VIAL IV PRN; -ONDANSETRON INJ 2 MG/ML 2 ML VIAL IV PRN; -OXY/15 PO; -OXYCODONE/ACETAMINOPHEN 5-325 TAB PO PRN; -PAIN PUMP; -PHENYLEPHRINE 100MCG/ML 5ML SYR IV PRN; -PROPOFOL IV EMULSION 10 MG/ML 20 ML VIAL IV ONE; -SODIUM CHLORIDE 0.9% INJ 10 ML VIAL ONE; -TEST1INJ3 IM
[2018-09-15] MEDS ORDERED: fentaNYL citrate 100 MCG/2 ML VIAL ONE ×5 (10:31→13:39)
[2018-09-15] MEDS ORDERED: MIDAZOLAM HCL 1 MG/ML 2ML VIAL ONE (10:31)
[2018-09-15] MEDS ORDERED: ZOLPIDEM TARTRATE 5 MG TAB PO PRN (10:39)
[2018-09-15] MEDS ORDERED: NALOXONE HCL 0.4 MG/1 ML VIAL/CARP IV PRN (10:39)
[2018-09-15] MEDS ORDERED: ONDANSETRON INJ 2 MG/ML 2 ML VIAL IV PRN ×2 (10:39→11:06)
[2018-09-15] MEDS ORDERED: MAGNESIUM CITRATE 296 ML/BTL PO PRN (10:39)
[2018-09-15] MEDS ORDERED: IOPAMIDOL INJ 61% 15 ML VIAL ONE (10:42)
[2018-09-15] MEDS ORDERED: LIDOCAINE 2%/EPINEPHRINE 1:100,000 1.8 ML CARTRIDGE ONE (10:43)
[2018-09-15] MEDS ORDERED: POVIDONE-IODINE OP SOLN 30 ML BTL ONE (10:43)
[2018-09-15] MEDS ORDERED: NO NARCOTICS OR SEDATIVES SCH (10:45)
[2018-09-15] MEDS ORDERED: LIDOCAINE/EPINEPHRINE 2% 1:200,000 20 ML SDV ONE (10:52)
[2018-09-15] MEDS ORDERED: ATROPINE SULFATE 0.1 MG/ML 10ML SYR IV PRN (11:06)
[2018-09-15] MEDS ORDERED: ePHEDrine sulfate 50 MG/ML AMP IV PRN (11:06)
--- NOTE | 2018-09-15 11:10 | History & Physical Bridge Note ---
Date of Service September 15, 2018 History & Physical Bridge Note I have examined the patient, reviewed the History & Physical and in the interval since the performance of the History & Physical I have noted the following changes of clinical significance: no changes noted. Patient accepts risks/benefits of procedure as outlined in consent and agrees to proceed.
[2018-09-15] MEDS: LR 15ML/HR IV SCH ×2 (11:16→19:29)
[2018-09-15] MEDS ORDERED: HYDROmorphone INJ 2 MG/ML SYR/VIAL ONE ×2 (11:54→13:39)
[2018-09-15] MEDS ORDERED: ePHEDrine sulfate 50 MG/ML AMP ONE (13:02)
[2018-09-15] MEDS ORDERED: ePHEDrine sulfate 50 MG/ML SYR ONE (13:02)
[2018-09-15] MEDS ORDERED: ROCURONIUM BROMIDE 10 MG/ML 5 ML VIAL ONE ×3 (13:14→13:44)
[2018-09-15] MEDS ORDERED: ARISTA ABSORBABLE HEMOSTAT 3GM TOP ONE (13:16)
[2018-09-15] MEDS ORDERED: KETOROLAC 30 MG/ML VIAL ONE (13:43)
[2018-09-15] MEDS ORDERED: ONDANSETRON INJ 2 MG/ML 2 ML VIAL ONE (13:43)
[2018-09-15] MEDS ORDERED: GLYCOPYRROLATE 0.2 MG/ML VIAL ONE (13:43)
[2018-09-15] MEDS ORDERED: DEXAMETHASONE SOD INJ 4 MG/ML VIAL ONE (13:43)
[2018-09-15] MEDS ORDERED: LIDOCAINE HCL 2% 2 ML VIAL/AMP(20MG/ML) INFIL ONE (13:43)
[2018-09-15] MEDS ORDERED: PROPOFOL IV EMULSION 10 MG/ML 20 ML VIAL IV ONE (13:43)
[2018-09-15] MEDS ORDERED: NEOSTIGMINE METHYLSULFATE 5 MG/5 ML SYR ONE (13:43)
[2018-09-15] MEDS ORDERED: LIDOCAINE/EPINE 2% 1:100,000 20ML INFIL ONE (14:00)
--- NOTE | 2018-09-15 14:30 | Operative Report ---
Post Operative Report Pre & Post Diagnosis Operation Date: 09/15/18 12:00 Pre-Op Diagnosis: Intrathecal Catheter Fracture Post-Op Diagnosis: Intrathecal Catheter Fracture Procedure Operation Date: 09/15/18 12:00 Actual Procedures p Exploration of Intrathecal Catheter site and replacement of intrathecal catheter, access port study, Analysis and Re-programming, Intrathecal pump refill(Right) - Kavita Alvarez DO Surgeon Kavita Alvarez DO Captain Airline Pilot none Estimated Blood Loss 20 Findings Consistent with Post-Op Diagnosis Fluids per anes Specimens none Drains none Anesthesia Type General Complications none Disposition Accompanied Patient To Recovery: No Disposition: Recovery Room Description of Procedure Exploration of Intrathecal Catheter site and replacement of intrathecal catheter, access port study, Analysis and Re-programming, Intrathecal pump refill PREOPERATIVE DIAGNOSIS: Fractured intrathecal catheter with withdrawal symptoms POSTOPERATIVE DIAGNOSIS: Same. COMPLICATIONS: None. SURGEON: Dr. Kavita Alvarez. EBL: 20ml ANESTHESIA: General. MATERIAL FORWARDED TO THE LAB: None. INDICATIONS: The patient was found to have acute opiate withdrawal with withdrawal symptoms and inability to access CSF on a catheter access port study. In addition the patient did not have a granuloma noted on MRI thus intrathecal catheter was suspected. The patient was informed of the risks and benefits and agreed to intrathecal pump catheter replacement/revision. The patient was explained the risks, benefits, alternatives of the procedure and agreed to proceed as above. Informed consent was obtained and witnessed. A time out was performed after the patient was brought into the Operating Room. Antibiotics were given. The patient was then induced with general anesthesia without complications and was placed in left lateral decubitus position. Fluoroscopy was utilized throughout the procedure. The skin was prepped with duraprep and betadine and draped in sterile fashion. The axial lumbar midline incision was opened and the intrathecal catheter was dissected. The intrathecal segment was noted and the catheter was cut. No aspiration from the intrathecal segment of the catheter was noted. Thus, a new intrathecal catheter was determined to be in the patient's best interest. An 18-gauge spinal needle was used to gain access to the CSF through the L2-3 interspace. No heme was noted. Positive CSF flow was obtained and the intrathecal catheter was passed to the T9 vertebral body. The stylet was then removed. AHemostasis was achieved. The intrathecal catheter was secured to the fascia with 2 purse string 0 silk ties. Then the spinal needle was removed and a Medtronic butterfly anchor to secure the catheter to the underlying supraspinous ligament was utilized. There was positive CSF flow from the intrathecal catheter after anchoring of the catheter to the fascia. Then in the right lower quadrant a pocket for the intrathecal pump was made and hemostasis was achieved. A passer was used to transfer the intrathecal pump catheter underneath the skin and subcutaneous tissues through t o the pocket incision. As the patient was very thin stature, care was taken not to enter the intra-abdominal cavity. After transfer of the end of the catheter to the pocket incision aspiration of the intrathecal catheter revealed positive CSF flow free flowing. Both pocket and midline axial thoracic incisions were irrigated with 3 bulb syringes full of sterile normal saline with bacitracin and aqeuous idophor. Hemostasis was achieved. The intrathecal pump was filled was rinsed and filled with hydromorphone 1.5 mg/mL and bupivacaine 0.7 mg/mL per protocol. The intrathecal catheter was not trimmed. The sutureless connector was connected to the end the intrathecal pump and aspiration from of the end of the catheter was free-flowing. It was then connected to the intrathecal pump per protocol. The intrathecal pump was anchored in the pocket with 2 0 Prolene sutures. Only the 10:00 and 2:00 positions were anchored due to presence of Henderson-Sim sock pre-existing in the pocket. No complications were noted after the intrathecal pump was placed inside the pocket. Gali was placed into both wounds for additional hemostasis. The skin and subcutaneous tissues of both incisions were closed with 3 layers of O-Stratafix sutures, then 3-0 Stratafix antibiotic coated sutures, followed by dermabond Prineo dressing. A solitary 0 silk suture was placed over the mid axillary line as the passer required exit due to not being able to make the curve around the thin patient due to concern of entering the intra-abdominal cavity. The skin was cleansed and dried then 4 x 4's and Tegaderms followed by a pressure dressing were placed for closure dressings. An abdominal binder was placed on the patient. No complications were noted throughout the procedure. The patient tolerated the procedure and general anesthesia well and was extubated at the end of the procedure. The patient was then transferred back to the [facility] and was taken to the recovery room in stable condition. The patient will follow up with our clinic at 7 days for a wound check and further care. Pump size inserted: 40ml Level of catheter: T9 Medication placed in pump: Hydromorphone 1.5 mg/mL and bupivacaine 0.7 mg/mL to run in simple continuous mode at hydromorphone 1.5 mg/day and bupivacaine 0.7 mg/day. I attest to the content of the Intraoperative Record and any orders documented therein. Any exceptions are noted below.
[2018-09-15] MEDS ORDERED: ESMOLOL HCL INJ 10 MG/ML 10ML VIAL IV ONE (14:35)
[2018-09-15] MEDS: fentaNYL citrate 100 MCG/2 ML VIAL IV PRN ×4 (14:46→15:24)
[2018-09-15] MEDS ORDERED: NALOXONE HCL 1 MG in SODIUM CHLORIDE 0.9% 1000ML 1,000 ML IV PRN (14:59)
--- NOTE | 2018-09-15 15:23 | Anesthesiology Progress Note ---
Date of Service September 15, 2018 Anesthesia Post Procedure Vital Signs Vital Signs: Temp Pulse Pulse Resp BP BP Pulse Ox 09/15/18 15:10 73 15 153/77 H 98 09/15/18 15:00 78 15 154/79 H 100 09/15/18 14:50 76 20 155/80 H 100 09/15/18 14:41 36.9 C 77 21 155/80 H 100 09/15/18 10:33 36.6 C 66 18 142/76 H 96 Pain Intensity Bilateral Leg: Pain Intensity: 7 Abdomen: Pain Intensity: 5 Transfer of Care Handoff Completed per policy Notes Mental Status: alert / awake / arousable Patient Amnestic to Procedure: Yes Nausea / Vomiting: adequately controlled Pain: adequately controlled Airway Patency, RR, SpO2: stable & adequate BP & HR: stable & adequate Hydration State: stable & adequate Anesthetic Complications: no major complications apparent and Pt Satisfied with anesthetic care
--- NOTE | 2018-09-15 15:24 | Hospitalist Consultation ---
Date of Consultation September 15, 2018 Assessment & Plan (1) Chronic pain: (2) Neuropathic pain: (3) Presence of intrathecal pump: - s/p elective intrathecal pump insertion by Dr. Alvarez on 09/15/18, follows primarily with Dr. Ivey as an outpatient - Admitted for obs on PCU/tele - Pain controlled currentl: Continue oxycodone 5 mg PO Q4H and dilaudid 0.5 mg Q1H prn while inpatient, titrate per primary team to home meds - Dressing c/d/i - Ambulate as tolerated - Bowel regimen on board (4) Atrial fibrillation: - Hx of such per pt report in [id number], s/p cardioversion which was unsuccessful and then needed to have cardiac ablation. - Continue on metoprolol 50 mg BID and losartan 25 mg daily for this. - Uses clonidine for anxiety and pain improvement - not BP - he was only recently placed on this medication and does not use it every day. Monitor as ordered BID scheduled vs prn here. - Pt reports normal to low BP as his baseline (5) DVT prophylaxis: - teds, scds Thank you for involving us in the care of Mr. Schafer. Please do not hesitate to call with questions or concerns. Supervising Physician Co-Signing Physician Notes The patient was seen and examined by me and I agree with the assessment and plan done by Laney Huynh PA-C. Patient is alert and oriented. He has some postoperative paresthesia of the lower extremities probably due from intraoperative manipulation. This should resolve. Lungs are clear. Heart rhythm is regular. He has a past history of atrial fibrillation and has had a ablation in the past. He currently is in normal sinus rhythm. He is alert and oriented x3. is at the bedside. Vital signs are stable. History of Present Illness Reason for Consultation: Medical management Attending Physician: Kavita Alvarez DO History of Present Illness This is a 62 yo M with PMHx of chronic pain syndrome, intrathecal pump and catheter delivery [place] [address] Ivey for lumbar post-lami nectomy syndrome. Other medical hx includes afib s/p cardiac ablation, Dr. Villafana was performing his pump refills. The intrathecal pump is set to deliver Hydromorphone 15mg/day and Bupivacaine 7.5mg/day most recently. Pt also uses Oxycodone 15mg PO Q6H. He had been given MS ER 30 mg Q8H while pump was nonfunctioning in the past 3 weeks. The patient is seen in the PACU. He is awake and feels pretty well. He was just moved around to have the dressing checked by nursing therefore has some pain. He reports tingling in toes bilaterally, but has sensation to light touch and muscle strength is intact. He denies any other acute complaints. Pt lives at home with . He is agreeable to overnight stay for monitoring. Allergies Allergy/AdvReac Type Severity Reaction Status Date / Time chlorhexidine Allergy Mild red and Verified 09/15/18 10:24 itchy skin Home Medications Home Medications Medication Instructions Recorded Confirmed Type clonidine HCl 0.2 mg PO BID 09/04/18 09/15/18 History ibuprofen 200 mg PO Q6H PRN 09/04/18 09/15/18 History losartan 25 mg PO QAM 09/04/18 09/15/18 History metoprolol succinate 50 mg PO BID 09/04/18 09/15/18 History naloxone [Narcan] 1 sprays INTNAS ONCE PRN #2 ea 09/04/18 09/15/18 Rx testosterone cypionate 0.5 mg IM WK 09/04/18 09/15/18 History aspirin 81 mg tablet,delayed 81 mg PO QAM 09/10/18 09/15/18 History release morphine ER 30 mg tablet,extended 30 mg PO Q8H #21 tab 09/10/18 09/15/18 Rx release oxycodone 15 mg tablet 15 mg PO Q6H PRN #30 tab 09/10/18 09/15/18 Rx Patient History Medical History Neuropathic pain (Chronic) Cervical stenosis of spinal canal (Chronic) Chronic pain (Chronic) Withdrawal symptoms, drug or narcotic (Resolved) Atrial fibrillation (Chronic) IN THE PAST Neuropathic pain (Chronic) Acute drug withdrawal syndrome (Resolved) Failed spinal cord stimulator (Resolved) Surgical History Difficult airway for intubation (Chronic) 09/04/15 - Glidescope #4, ETT #8.0, Neck kept in neutral position 02/03/13 - Glidescope #4, ETT #7.5 Presence of intrathecal pump (Chronic) Cervical vertebral fusion (Resolved) 02/03/13 - Glidescope #4, ETT #7.5 Fusion of spine (Resolved) LUMBAR FUSION X 1 CERVICAL FUSION X 2 (ROM OF NECK WNL) 09/04/15 - Glidescope #4, ETT #8.0, Neck kept in neutral position H/O cardiac radiofrequency ablation (Resolved) 2 YEARS AGO AT [facility] FOLLOWS WITH DR. HUBER MENDOZA History of adenoidectomy (Resolved) History of appendectomy (Resolved) History of carpal tunnel release (Resolved) RT/LEFT History of cholecystectomy (Resolved) History of colonoscopy (Resolved) History of esophagogastroduodenoscopy (EGD) (Resolved) History of surgery (Resolved) IMPLANTED PAIN PUMP History of tonsillectomy (Resolved) History of tooth extraction (Resolved) S/P insertion of spinal cord stimulator (Resolved) INSERTION AND REMOVAL S/P lumbar spine operation (Resolved) Family History Other No significant family history Social History Preferred Language: Namibian Communication Ability: Effective Visual Impairment: No Limitations Hearing Ability: Normal Territory 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 Beliefs That Will Affect Care: None marital status: Current Living Situation: Spouse current occupational status: employed Other Information That Helps Us Care for You: No Feels Safe at Home: Yes Safety Concerns: Feels Safe At This Time Smoking Status: Former smoker Tobacco Type: cigarettes Cigarettes Per Day: ~1ppd x 15 years Do You Dip or Chew Tobacco: No Smoking End Date: 30 YEARS AGO Second Hand Exposure: No Tobacco Cessation Education Requested by Patient: No Hx Alcohol Use: No Hx Substance Use: No Review of Systems Review of Systems: Constitutional: No fever, sweats or chills Eyes: No diplopia, no worsening or blurred vision ENT: normal hearing, no trouble swallowing Respiratory: No cough, sputum, dyspnea at rest or on exertion Cardiovascular: No chest pain, tightness or palpitations Abdomen: + pain over site of intrathecal pump insertion but otherwise no pain, no nausea, vomiting, diarrhea or constipation Musculoskeletal: No joint pain, calf pain, swelling Neurologic: + tingling in toes bilaterally, otherwise no weakness, numbness/tingling or balance problems Psychiatric: No anxiety or depression Skin: No rash or itch Physical Exam Physical Exam: General: awake, alert, mild distress, + fine tremor over entire body Head: Normocephalic, atraumatic ENT: PERRL, EOMI, no pharyngeal exudate, mucous membranes moist Chest: Clear to auscultation, on room air, no adventitious breath sounds Cardiac: Regular rate and rhythm, no murmur, no JVD, normal peripheral pulses, good capillary refill Abdominal: + intrathecal pump placed in RLQ, dressing c/d/i, dressing posterior back is c/d/i, hypoactive bowel sounds, soft, mildly tender to palpation, no rebound or guarding Extremities: Normal inspection, no peripheral edema or erythema, calfs nontender to palpation Psych: Normal mood and affect Neuro: AAO x 3, strength intact bilaterally and related 5/5, no motor deficits, speech is clear, no peripheral sensory deficits Results & Data Vital Signs (Past 12 Hours) Vital Signs Temp Pulse Pulse Resp BP BP Pulse Ox 09/15/18 15:00 78 15 154/79 H 100 09/15/18 14:50 76 20 155/80 H 100 09/15/18 14:41 36.9 C 77 21 155/80 H 100 09/15/18 10:33 36.6 C 66 18 142/76 H 96 (1) Chronic pain Chronic pain type: other chronic pain Qualified Code(s): G89.29 - Other chronic pain
[2018-09-15] MEDS ORDERED: NALOXONE INTNAS PRN (17:05)
[2018-09-15] MEDS: HYDROmorphone INJ 0.5 MG/0.5 ML SYR IV PRN ×3 (17:09→21:53)
[2018-09-15] MEDS: OXYCODONE HCL IR 5 MG TAB (IMMEDIATE RELEASE) PO PRN (20:04)
[2018-09-15] MEDS: DOCUSATE SODIUM 100 MG CAP PO SCH (20:05)
[2018-09-15] MEDS: cloNIDine HCl 0.1 MG TAB PO SCH (20:05)
[2018-09-15] MEDS: METOPROLOL SUCC 50MG EXT REL TAB PO SCH (20:06)
[2018-09-16] MEDS: HYDROmorphone INJ 0.5 MG/0.5 ML SYR IV PRN ×2 (00:42→04:21)
[2018-09-16] MEDS: OXYCODONE HCL IR 5 MG TAB (IMMEDIATE RELEASE) PO PRN ×3 (04:21→12:27)
[2018-09-16] MEDS: cloNIDine HCl 0.1 MG TAB PO SCH (08:33)
[2018-09-16] MEDS: METOPROLOL SUCC 50MG EXT REL TAB PO SCH (08:33)
[2018-09-16] MEDS: DOCUSATE SODIUM 100 MG CAP PO SCH (08:33)
[2018-09-16] MEDS ORDERED: LOSARTAN POTASSIUM 25 MG TAB PO SCH (09:00)
--- NOTE | 2018-09-16 09:34 | Pain Management Progress Note ---
Date of Service September 16, 2018 Assessment & Plan (1) Presence of intrathecal pump: Intrathecal catheter was replaced without complication. A 33% dosage increase was made today. Daily dosage is now Hydromorphone 2.0002 mg/day and Bupivacaine 0.11775 mg/day. Low reservoir alarm date is 10/12/18. He will be made a 1 week and 2 week wound check appointment. He has been instructed to wear the abdominal binder 24/ x 4 weeks than only during physical activity for an additional 4 weeks. Subjective Patient tolerated intrathecal catheter replacement well without complications. He has been experiencing mild urinary retention which is typical for him. He did require straight cath last night and this morning has been able to urinate a small amount. Patient's pain is not controlled currently. Patient states that he is in 7/10 pain. He describes and aching in the low back, burning in the feet, and sharp incisional pains. There has been 5mg IV Hydromorphone and 10mg PO Oxycodone used over the last 12 hours. He does have Oxycodone 15mg PO at home from PCP. Patient denies any fevers, chills, nausea, abdominal pain, flank pain, hematuria, or weakness. Case discussed with Dr. Kavita Alvarez Pain Assessment Pain Assessment Full Body Front + Back: 1. 2. [facility] Combined Pain Scale: 7-Severe - Pain prevents productive activity. Impossible to tolerate. Pain scale - at its best (0-10): 4 Pain scale - at its worst (0-10): 9 Physical Exam Physical Exam: GENERAL: Thin 62 year old white male is accompanied by his . Speech and cognition is intact. Does appear mildly anxious today. ABDOMEN: Intrathecal pump is located in the RLQ without any mobility noted. Prineo bandage in place. There is a suture on the right flank. No incisional drainage, erythema, warmth. BACK: Thoracolumbar incision appears well approximated. Prineo bandage in place. No erythema, drainage, or warmth noted. NEURO: CN II-XII grossly intact with no focal deficits noted. Ambulation not witnessed.
--- NOTE | 2018-09-16 09:44 | Discharge Summary ---
Date of Service September 16, 2018 Admission HPI Per Admitting Provider Mr. Schafer is a 62 year old white male that has been seen by the [facility] for acute withdrawal of an intrathecal pump. For 3 weeks he has been experiencing withdrawal symptoms of nausea, chills, irritability, difficulty sleeping, increased pain, excessive yawning, and photophobia. Patient had the intrathecal [place] catheter [place] [address] Ivey for lumbar post-laminectomy syndrome. Pain is rated 4/10 at its best and 8/10 at its worst. The intrathecal pump is set to deliver Hydromorphone 15mg/day and Bupivacaine 7.5mg/day. He does also chronically take oral Oxycodone 15mg 4 times daily. He denies any radicular symptoms, fevers, diarrhea, constipation, dizziness, urinary sx, falls. Admission Exam (Per Admitting) Constitutional GENERAL: Thin 62 year old white male. Speech and cognition is intact. Mood and affect is appropriate. In no acute distress. HEAD: Normocephalic; atraumatic. EYES: Pupils are round, equal, and reactive to light; EOM intact. ENT: No external ear discharge or lesions. No rhinorrhea or epistaxis. No mucosal lesions. NECK: Decreased ROM; trachea is midline; no cervical lymphadenopathy. CARDIO: Regular rate and rhythm. No murmurs, rubs, or gallops. PULM: Clear to auscultation. No wheezes, rales, or rhonchi. CHEST: Regular chest respiration and excursion. ABDOMEN: Intrathecal pump is located in the RLQ without any mobility noted. EXTREMITIES: 5/5 strength of the bilateral upper and lower extremities. BACK: Well healed surgical incision. Mild diffuse lumbosacral tenderness. No paravertebral, quadratus lumborum, gluteal, or piriformis muscle spasm or myoneural trigger points noted. NEURO: CN II-XII grossly intact with no focal deficits noted. Normal gait. SKIN: No lesions, erythema, or rashes noted. Specialty [facility] [phone] Discharge Data Consultations 09/15/18 15:00 Consult Hospitalist Routine Procedures Performed Operation Date: 09/15/18 12:00 Actual Procedures p Exploration of Intrathecal Catheter, with access study of Intrathecal port Analysis and Re-programming, Intrathecal pump refill(Right) - Kavita Alvarez [facility] Course (1) Presence of intrathecal pump: Intrathecal catheter was replaced without complication. A 33% dosage increase was made today. Daily dosage is now Hydromorphone 2.0002 mg/day and Bupivacaine 0.03703 mg/day. Low reservoir alarm date is 10/12/18. He will be made a 1 week and 2 week wound check appointment. He has been instructed to wear the abdominal binder / x 4 weeks than only during physical activity for an additional 4 weeks. Discharge Instructions Wear abdominal binder at all times x 4 weeks. Change incision dressings daily. Take Oxycodone 15mg 1/2 -1 tablet PO x 6 hours PRN pain. He does have pills at home. Keep scheduled appointments for 1 week and 2 week wound checks.
== END 2018-09-16 14:40 | disposition home or self-care (01) ==
LOC: ASU 10:02 → 2E 10:02

== ENCOUNTER 2019-02-24 17:13 | Inpatient (IN) ==
--- NOTE | 2019-02-24 18:29 | Emergency Department Note ---
Entered by Anca Hurley acting as a scribe for History of Present Illness General Chief complaint: Lethargic Stated complaint: INCREASED AGGITATION, REFUSING MEDS Time Seen by Provider: 02/24/19 17:52 Source: family Limitations: other (mental state ) History of Present Illness Provider complaint: Increased agitation Onset (ago): day(s) Location: back Pain Consistency: + other (increased) Maximum Pain Intensity: 7 Quality: + constant Associated symptoms: + other (Positive: increased agitation, metastatic gastric cancer stage 4, violent, falls, back pain) The patient is a 63 year old male with past medical history of atrial fibrillation, neuropathic pain, DVT prophylaxis, who presents to the ED with complaints of increased agitation that started a few days ago. The reports the patient has a history of metastatic gastric cancer stage 4 and is on hospice care. She notes the patient has been refusing his oral medications and has increased agitation. The additionally states the patient is violent at home and she does not feel safe. She reports she does not think she can give the patient the care he needs and would like the patient to be placed. The notes the patient has an intrathecal Dilaudid pump for back pain. She states the patient falls at home often and his most recent fall was last night. Additionally, the reports they were sent to the ED by Dr. Curtis. HPI limited secondary to the patient's mental state. Home Medications Home Medications Medication Instructions Recorded Confirmed Type dexamethasone [Decadron] 4 mg PO QAM 02/24/19 02/24/19 History haloperidol lactate 1 mg PO Q4H PRN 02/24/19 02/24/19 History hyoscyamine sulfate [Levsin] 0.125 mg PO Q4H PRN 02/24/19 02/24/19 History lorazepam [Ativan] 1.5 mg PO Q4H PRN 02/24/19 02/24/19 History magnesium hydroxide [Milk of 30 ml PO DAILY PRN 02/24/19 02/24/19 History Magnesia] methadone 40 mg PO Q12H 02/24/19 02/24/19 History morphine concentrate 5 mg PO Q2H PRN 02/24/19 02/24/19 History omeprazole 40 mg PO DAILY 02/24/19 02/24/19 History oxycodone 30 mg PO Q4H PRN 02/24/19 02/24/19 History quetiapine 50 mg PO HS 02/24/19 02/24/19 History quetiapine [Seroquel] 25 mg PO QAM 02/24/19 02/24/19 History sennosides [senna] 8.6 - 17.2 mg PO DAILY PRN 02/24/19 02/24/19 History venlafaxine [Effexor XR] 150 mg PO HS 02/24/19 02/24/19 History Allergies Allergy/AdvReac Type Severity Reaction Status Date / Time chlorhexidine Allergy Mild Red and Verified 02/24/19 17:57 itchy skin Past Med/Surg History Medical History Acute drug withdrawal syndrome (Resolved) Atrial fibrillation (Chronic) IN THE PAST Chronic pain (Chronic) Degenerative disc disease Failed spinal cord stimulator (Resolved) Gastric cancer Neuropathic pain (Chronic) Port-A-Cath in place Insertion of A-Port, Left Subclavian Vein Dr. Lerma 12-15-18 Stomach ulcer Withdrawal symptoms, drug or narcotic (Resolved) Surgical History Cervical vertebral fusion (Resolved) 2 CERVICAL FUSIONS>02/03/13 - Glidescope #4, ETT #7.5 ROM WNL PER PATIENT Difficult airway for intubation (Chronic) 09/04/15 - Glidescope #4, ETT #8.0, Neck kept in neutral position 02/03/13 - Glidescope #4, ETT #7.5 Fusion of spine (Resolved) LUMBAR FUSION X 1 09/04/15 - Glidescope #4, ETT #8.0, Neck kept in neutral position H/O cardiac radiofrequency ablation (Resolved) 2017 AT [facility] [address] HUBER MENDOZA History of adenoidectomy (Resolved) History of appendectomy (Resolved) History of carpal tunnel release (Resolved) RT/LEFT History of cholecystectomy (Resolved) History of colonoscopy (Resolved) History of esophagogastroduodenoscopy (EGD) (Resolved) History of surgery (Resolved) IMPLANTED PAIN PUMP History of tonsillectomy (Resolved) History of tooth extraction (Resolved) Presence of intrathecal pump (Chronic) 09/15/2018. GETA. Glidescope #4 (elective). Grade 1 view. No issues. S/P appendectomy (~1991) S/P cholecystectomy (~1998) S/P insertion of spinal cord stimulator (Resolved) INSERTION AND REMOVAL Family History Other Heart disease No significant family history Social History Preferred Language: Irish Communication Ability: Effective Visual Impairment: No Limitations Hearing Ability: Normal Campus Police Officer Required: No Beliefs That Will Affect Care: None marital status: Current Living Situation: Spouse current occupational status: employed Other Information That Helps Us Care for You: Yes (needs placement) Feels Safe at Home: Yes Safety Concerns: Feels Safe At This Time Smoking Status: Never smoker Tobacco Type: cigarettes ; Do You Dip or Chew Tobacco: No ; Second Hand Exposure: No ; Hx Alcohol Use: No Hx Substance Use: No Review of Systems See HPI for pertinent positives & negatives. Other (limited secondary to the patient's mental state. ) Physical Exam Vital Signs Vital Signs - 24 hr 02/24/19 17:20 Temperature 36.7 C Temperature Source Oral Pulse Rate 90 Respiratory Rate 20 Blood Pressure 118/72 Blood Pressure Mean 87 Blood Pressure Position Sitting Pulse Oximetry 94 Oxygen Delivery Method Room Air Sepsis Recent Fever Within 48 Hours No Sepsis New/Unexplained Change in Mental Status No Sepsis Action Taken by Nursing No Action Required GENERAL: Patient is in no acute distress. HEENT: No acute trauma, normocephalic atraumatic, mucous membranes dry, no nasal congestion, no scleral icterus. Pupils are equal and reactive to light. NECK: No stridor, no adenopathy, no meningismus, trachea is midline. LUNGS: Clear to auscultation bilaterally, no wheeze, no rhonchi, breath sounds equal. HEART: Without murmurs gallops or rubs, regular rate and rhythm. ABDOMEN: Soft, nontender, bowel sounds positive, no hernias, no peritonitis. EXTREMITIES: No cyanosis or edema, full range of motion of all the joints without pain or difficulty, no signs for acute trauma. NEUROLOGIC: Somnolent, currently nonverbal, sleepy. SKIN: No rash, no jaundice, no diaphoresis. Course Course 1753: The patient was evaluated in room A12A. A complete history and physical exam was performed. 1817: I discussed the patients case with the spring encaser. The spring encaser approved the hospital stay for now. We will talk to medicine. 1840: I discussed the patients case with Dr. Arechiga, [facility] hospitalist. He will evaluate the patient for further management. Consultations Consultation #1: I discussed the patients case with Dr. Arechiga, [facility] hospitalist. He will evaluate the patient for further management. Time: 18:40 Administered Medications Methadone HCl (Dolophine) 40 mg PO Q12H ALEJO Stop: 03/10/19 20:59 Last Admin: 02/24/19 21:36 Dose: 40 mg Documented by: [id number] Pantoprazole Sodium (Protonix) 40 mg PO DAILY ALEJO Stop: 03/26/19 19:29 Last Admin: 02/24/19 21:36 Dose: 40 mg Documented by: [id number] Quetiapine Fumarate (Seroquel) 50 mg PO HS [facility] Stop: 03/26/19 20:59 Last Admin: 02/24/19 21:37 Dose: 50 mg Documented by: [id number] Venlafaxine HCl (Effexor Extended Release) 150 mg PO HS ALEJO Stop: 03/26/19 20:59 Last Admin: 02/24/19 21:37 Dose: 150 mg Documented by: [id number] Discontinued Medications Famotidine (Pepcid 20mg Iv Push) 20 mg in 5 mls @ 2.5 mls/min IV NOW STA Stop: 02/24/19 19:29 Last Admin: 02/24/19 21:27 Dose: Not Given Documented by: [id number] Famotidine (Pepcid 20mg Iv Push) 20 mg in 5 mls @ 2.5 mls/min IV NOW ONE Stop: 02/24/19 21:01 Last Admin: 02/24/19 21:37 Dose: 2.5 mls/min Documented by: [id number] Medical Decision Making Differential Diagnosis Differential Diagnosis: Dehydration, pneumonia, aspiration, electrolyte imbalance, renal or liver failure, worsening gastric cancer. Medical Records Attestation: I reviewed the patient's medical records. Home Medications Current Medication List: was personally reviewed by me Blood Pressure Blood Pressure Findings: Elevated blood pressure Blood Pressure Disposition: elevated BP felt to be situational MDM Narrative Patient presents for worsening agitation. He has refused some of his medications. He has metastatic stage IV gastric cancer. He has become a danger to himself and his and caregiver are somewhat afraid. Patient becomes quite combative at times. Patient is currently under hospice care and the family is here in the ED for hospice placement. The patient is no longer able to be cared for by his family at home. The patient is not to receive any hydration, no work-up is to be performed. Comfort measures only have been approved. An IV was placed to provide pain and agitation medication. I spoke with the spring encaser. The on-call hospitalist was consulted. Impression & Plan Combative behavior, Dehydration, Hospice care Discharge Plan Visit Data *Final* Discharge Date/Time: 02/24/19 19:41 Chief Complaint: Lethargic Stated Complaint: INCREASED AGGITATION, REFUSING MEDS ED Provider: Willy Adrian Discharge Problem: Combative behavior, Dehydration, Hospice care Patient Disposition: Admitted As Inpatient Discharge Instructions Interventions: ED Discharge Assessment Last Done: 02/24/19 19:41 The scribe's documentation has been prepared under my direction and personally reviewed by me in its entirety. I confirm that the note above accurately reflects all work, treatment, procedures, and medical decision making performed by me.
[2019-02-24] MEDS ORDERED: SENNA 8.6 MG TAB PO PRN (18:56)
[2019-02-24] MEDS ORDERED: OXYCODONE HCL IR 30 MG TAB (IMMEDIATE RELEASE) PO PRN (18:56)
[2019-02-24] MEDS ORDERED: MAGNESIUM HYDROXIDE SUSP 30 ML UDC PO PRN (18:56)
[2019-02-24] MEDS ORDERED: LORazepam 0.5 MG/1 ML VIAL IV PRN (18:56)
[2019-02-24] MEDS ORDERED: MoRPHine SULFATE 2 MG/ML CARP IV PRN (18:56)
[2019-02-24] MEDS ORDERED: ONDANSETRON INJ 2 MG/ML 2 ML VIAL IV PRN (19:01)
--- NOTE | 2019-02-24 19:08 | History & Physical Report ---
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 daily Pepcid IV x1 Consult hospice Discussed with family CODE STATUS is DNR/DNI We will keep him comfortable History of Present Illness 63-year-old man who presented to his primary care physician on October 2018 with dysphagia to solids more than liquids, EGD at that time showed large fungating mass and biopsies revealed poorly differentiated adenocarcinoma status post left subclavian vein port placement in 12/15/2018, after that patient was placed on hospice at home. Continued to deteriorate, weight loss, generalized weakness, developed some agitation and anxiety and family and hospice nurse decided to bring him to the hospital for GIP as he is going to need frequent IV morphine and Ativan. Discussed with family who understand that he will be comfort measures DNR/DNI Primary Care Provider: Abner Wetzel MD Allergies Allergy/AdvReac Type Severity Reaction Status Date / Time chlorhexidine Allergy Mild Red and Verified 02/24/19 17:57 itchy skin Home Medications Home Medications Medication Instructions Recorded Confirmed Type dexamethasone [Decadron] 4 mg PO QAM 02/24/19 02/24/19 History haloperidol lactate 1 mg PO Q4H PRN 02/24/19 02/24/19 History hyoscyamine sulfate [Levsin] 0.125 mg PO Q4H PRN 02/24/19 02/24/19 History lorazepam [Ativan] 1.5 mg PO Q4H PRN 02/24/19 02/24/19 History magnesium hydroxide [Milk of 30 ml PO DAILY PRN 02/24/19 02/24/19 History Magnesia] methadone 40 mg PO Q12H 02/24/19 02/24/19 History morphine concentrate 5 mg PO Q2H PRN 02/24/19 02/24/19 History omeprazole 40 mg PO DAILY 02/24/19 02/24/19 History oxycodone 30 mg PO Q4H PRN 02/24/19 02/24/19 History quetiapine 50 mg PO HS 02/24/19 02/24/19 History quetiapine [Seroquel] 25 mg PO QAM 02/24/19 02/24/19 History sennosides [senna] 8.6 - 17.2 mg PO DAILY PRN 02/24/19 02/24/19 History venlafaxine [Effexor XR] 150 mg PO HS 02/24/19 02/24/19 History Past Med/Surg History Medical History Acute drug withdrawal syndrome (Resolved) Atrial fibrillation (Chronic) IN THE PAST Chronic pain (Chronic) Degenerative disc disease Failed spinal cord stimulator (Resolved) Gastric cancer Neuropathic pain (Chronic) Port-A-Cath in place Insertion of A-Port, Left Subclavian Vein Dr. Lerma 12-15-18 Stomach ulcer Withdrawal symptoms, drug or narcotic (Resolved) Surgical History Cervical vertebral fusion (Resolved) 2 CERVICAL FUSIONS>02/03/13 - Glidescope #4, ETT #7.5 ROM WNL PER PATIENT Difficult airway for intubation (Chronic) 09/04/15 - Glidescope #4, ETT #8.0, Neck kept in neutral position 02/03/13 - Glidescope #4, ETT #7.5 Fusion of spine (Resolved) LUMBAR FUSION X 1 09/04/15 - Glidescope #4, ETT #8.0, Neck kept in neutral position H/O cardiac radiofrequency ablation (Resolved) 2017 AT [place] FOLLOWS WITH DR. HUBER MENDOZA History of adenoidectomy (Resolved) History of appendectomy (Resolved) History of carpal tunnel release (Resolved) RT/LEFT History of cholecystectomy (Resolved) History of colonoscopy (Resolved) History of esophagogastroduodenoscopy (EGD) (Resolved) History of surgery (Resolved) IMPLANTED PAIN PUMP History of tonsillectomy (Resolved) History of tooth extraction (Resolved) Presence of intrathecal pump (Chronic) 09/15/2018. GETA. Glidescope #4 (elective). Grade 1 view. No issues. S/P appendectomy (~1991) S/P cholecystectomy (~1998) S/P insertion of spinal cord stimulator (Resolved) INSERTION AND REMOVAL Family History Other Heart disease No significant family history Social History Preferred Language: Yoruba Communication Ability: Effective Visual Impairment: No Limitations Hearing Ability: Normal Hat Brim Curler Required: No Beliefs That Will Affect Care: None marital status: Current Living Situation: Spouse current occupational status: employed Feels Safe at Home: Yes Smoking Status: Never smoker Tobacco Type: cigarettes ; Second Hand Exposure: No ; Hx Alcohol Use: No Hx Substance Use: No Review of Systems Review of Systems: Unobtainable due to his current condition Physical Exam Physical Exam: Average built, appears to be in mild distress S1-S2 slight tachycardia no murmur or gallop Lungs clear to auscultation bilaterally normal chest wall expansion Abdomen is soft nontender nondistended Extremities showed no edema no cyanosis Neuro moves all extremities and follows simple commands at this point but as per family and his nurse from hospice occasionally agitated Results & Data Vital Signs (Past 12 Hours) Vital Signs Temp Pulse Resp BP Pulse Ox 02/24/19 17:20 36.7 C 90 20 118/72 94 Code Status & VTE Plan Code Status DNR/DNI PG Care Time/CCT Total # of Minutes Spent Total Time Spent with Patient: 35 minutes total time spent is greater than 50% in coordination of care (as documented) at patient's floor/unit and/or counseling patient/family discussion of care with nursing staff
[2019-02-24] MEDS ORDERED: FAMOTIDINE 20MG/5ML IV PUSH IV STA (19:26)
[2019-02-24] MEDS ORDERED: FAMOTIDINE 20MG IV PUSH 20 MG/5 ML SYR IV STA (19:28)
[2019-02-24] MEDS ORDERED: LORazepam 0.5 MG TAB PO PRN (19:37)
[2019-02-24] MEDS ORDERED: MoRPHine SULFATE 5 MG/0.25 ML UDP PO PRN (19:39)
[2019-02-24] MEDS ORDERED: HALOPERIDOL 1 MG TAB PO PRN (19:40)
[2019-02-24] MEDS ORDERED: HYOSCYAMINE SULFATE 0.125 MG TAB PO PRN (19:42)
[2019-02-24] MEDS ORDERED: QUETIAPINE FUMARATE 25 MG TABLET PO SCH (21:00)
[2019-02-24] MEDS ORDERED: FAMOTIDINE 20MG IV PUSH 20 MG/5 ML SYR IV ONE (21:00)
[2019-02-24] MEDS ORDERED: VENLAFAXINE HCL XR 150 MG CAPXR PO SCH (21:00)
[2019-02-24] MEDS: METHADONE HCL 10 MG TAB PO SCH (21:36)
[2019-02-24] MEDS: PANTOprazole 40 MG TAB PO SCH (21:36)
[2019-02-25] MEDS: METHADONE HCL 10 MG TAB PO SCH (07:32)
[2019-02-25] MEDS: PANTOprazole 40 MG TAB PO SCH (07:33)
[2019-02-25] MEDS ORDERED: dexAMETHasone 4 MG TAB PO SCH (09:00)
[2019-02-25] MEDS ORDERED: QUETIAPINE FUMARATE 25 MG TABLET PO SCH (09:00)
[2019-02-25] MEDS ORDERED: NON-FORMULARY MEDICATION (Omeprazole 40 MG) PO SCH (09:00)
--- NOTE | 2019-02-25 16:13 | Palliative Care Consultation ---
Date of Consultation February 25, 2019 Assessment & Plan (1) Comfort measures only status: Patient is a 63-year-old male who is currently enrolled in hospice who was admitted on 02/24 for symptom management of agitation. Patient has a diagnosis of gastric CA-diagnosed in November 2018 when he presented with dysphasia and weight loss. Patient had been followed by oncology for MUGUS since 2016. Patient was admitted to hospice in December. He has had ongoing issues with pain, anxiety and agitation. Patient has a long history of back and neck pain-status post multiple surgeries with hardware placement. Patient also has an intrathecal pump. At home patient's methadone has been titrated with improvement in his pain control, continue to have increased anxiety-his Effexor was recently increase in the past few weeks, and is on Ativan as needed. Patient's agitation had been controlled with occasional Haldol-he had required more frequent dosing and was started on Seroquel. Seroquel has recently been titrated up to 25 mg in the morning and 50 at night. Patient had been doing fairly well at home until the last 1 to 2 days when he became more agitated and was unable to get him to take any of his PRN medications. Patient is being admitted GIP hospice care for management of agitation. Met with patient and hospice nurse this morning. Returned and met with patient and later this afternoon. Collaborated with case management. Plan is for placement at a facility to assist with his care and titrate his meds as needed. -Patient is an active hospice patient-admitted GIP status for symptom management - patient's CODE STATUS is DNR. Goal is comfort care -Plan for placement in a facility to further assist with his care and symptom management -Gastric cancer-diagnosed in November 2018-metastatic disease -Chronic pain-status post multiple spinal surgeries of the C-spine and L-spine with hardware, intrathecal pump. -Cancer related pain-pain has been well controlled on 40 mg of methadone twice daily with PRN oxycodone -Agitation- was using PRN Haldol - this required more frequent dosing-she was giving it every 4 hours [id number]. Patient was started on Seroquel- this was titrated to 25 mg in the morning with 50 mg at night-patient may benefit from a midday dose of 25 mg. -Anxiety-patient was receiving PRN Ativan-again was giving it every 4 hours [id number], was started on Effexor and this was titrated to 150 mg within the past 2 weeks. Would recommend scheduling Ativan at least 3 times daily to prevent benzo withdrawal. -Will continue to follow and assist patient and with placement and medical decision making. (2) Combative behavior: (3) Gastric cancer: (4) Chronic pain: Chronic pain type: other chronic pain Qualified Code(s): G89.29 - Other chronic pain (5) Anxiety: (6) Cancer associated pain: History of Present Illness Reason for Consultation: Assist with symptom management Requesting Physician: Dr. Kwesi Caballero Attending Physician: Kwesi Caballero MD History of Present Illness Patient is a 63-year-old male who is currently enrolled in hospice who was admitted on 02/24 for symptom management of agitation. Patient has a diagnosis of gastric CA-diagnosed in November 2018 when he presented with dysphasia and weight loss. Patient had been followed by oncology for MUGUS since 2016. Patient was admitted to hospice in December. He has had ongoing issues with pain, anxiety and agitation. Patient has a long history of back and neck pain-status post multiple surgeries with hardware placement. Patient also has an intrathecal pump. At home patient's methadone has been titrated with improvement in his pain control, continue to have increased anxiety-his Effexor was recently increase in the past few weeks, and is on Ativan as needed. Patient's agitation had been controlled with occasional Haldol-he had required more frequent dosing and was started on Seroquel. Seroquel has recently been titrated up to 25 mg in the morning and 50 at night. Patient had been doing fairly well at home until the last 1 to 2 days when he became more agitated and was unable to get him to take any of his PRN medications. Patient is being admitted GIP hospice care for management of agitation. Met with patient and hospice nurse this morning. Returned and met with patient and later this afternoon. Collaborated with case management. Plan is for placement at a facility to assist with his care and titrate his meds as needed. Patient's CODE STATUS is DNR. Allergies Allergy/AdvReac Type Severity Reaction Status Date / Time chlorhexidine Allergy Mild Red and Verified 02/24/19 17:57 itchy skin Home Medications Home Medications Medication Instructions Recorded Confirmed Type dexamethasone [Decadron] 4 mg PO QAM 02/24/19 02/24/19 History haloperidol lactate 1 mg PO Q4H PRN 02/24/19 02/24/19 History hyoscyamine sulfate [Levsin] 0.125 mg PO Q4H PRN 02/24/19 02/24/19 History lorazepam [Ativan] 1.5 mg PO Q4H PRN 02/24/19 02/24/19 History magnesium hydroxide [Milk of 30 ml PO DAILY PRN 02/24/19 02/24/19 History Magnesia] methadone 40 mg PO Q12H 02/24/19 02/24/19 History morphine concentrate 5 mg PO Q2H PRN 02/24/19 02/24/19 History omeprazole 40 mg PO DAILY 02/24/19 02/24/19 History oxycodone 30 mg PO Q4H PRN 02/24/19 02/24/19 History quetiapine 50 mg PO HS 02/24/19 02/24/19 History quetiapine [Seroquel] 25 mg PO QAM 02/24/19 02/24/19 History sennosides [senna] 8.6 - 17.2 mg PO DAILY PRN 02/24/19 02/24/19 History venlafaxine [Effexor XR] 150 mg PO HS 02/24/19 02/24/19 History Patient History Medical History Acute drug withdrawal syndrome (Resolved) Atrial fibrillation (Chronic) IN THE PAST Chronic pain (Chronic) Degenerative disc disease Failed spinal cord stimulator (Resolved) Gastric cancer Neuropathic pain (Chronic) Port-A-Cath in place Insertion of A-Port, Left Subclavian Vein Dr. Lerma 12-15-18 Stomach ulcer Withdrawal symptoms, drug or narcotic (Resolved) Surgical History Cervical vertebral fusion (Resolved) 2 CERVICAL FUSIONS>02/03/13 - Glidescope #4, ETT #7.5 ROM WNL PER PATIENT Difficult airway for intubation (Chronic) 09/04/15 - Glidescope #4, ETT #8.0, Neck kept in neutral position 02/03/13 - Glidescope #4, ETT #7.5 Fusion of spine (Resolved) LUMBAR FUSION X 1 09/04/15 - Glidescope #4, ETT #8.0, Neck kept in neutral position H/O cardiac radiofrequency ablation (Resolved) 2017 AT [place] FOLLOWS WITH DR. HUBER MENDOZA History of adenoidectomy (Resolved) History of appendectomy (Resolved) History of carpal tunnel release (Resolved) RT/LEFT History of cholecystectomy (Resolved) History of colonoscopy (Resolved) History of esophagogastroduodenoscopy (EGD) (Resolved) History of surgery (Resolved) IMPLANTED PAIN PUMP History of tonsillectomy (Resolved) History of tooth extraction (Resolved) Presence of intrathecal pump (Chronic) 09/15/2018. [facility]. Glidescope #4 (elective). Grade 1 view. No issues. S/P appendectomy (~1991) S/P cholecystectomy (~1998) S/P insertion of spinal cord stimulator (Resolved) INSERTION AND REMOVAL Family History Other Heart disease No significant family history Social History Preferred Language: Mauritanian Communication Ability: Impaired Visual Impairment: No Limitations Hearing Ability: Normal Cutter Apprentice Hand Required: No Beliefs That Will Affect Care: None marital status: Current Living Situation: Spouse current occupational status: employed Other Information That Helps Us Care for You: Yes (needs placement) Feels Safe at Home: Yes Safety Concerns: Feels Safe At This Time Smoking Status: Never smoker Tobacco Type: cigarettes ; Do You Dip or Chew Tobacco: No ; Second Hand Exposure: No ; Tobacco Cessation Education Requested by Patient: No Hx Alcohol Use: No Hx Substance Use: No Review of Systems Review of Systems: Patient denies fever, chills, chest pain, shortness of breath, or abdominal pain Positive for anxiety and restlessness Physical Exam Physical Exam: Patient awake and alert, mild distress due to anxiety and restlessness HEENT: EOMI, hearing within normal limits Respirations: Unlabored CV: Regular rate, no edema Abdomen: Not distended Extremities: Full range of motion Neuro: Unsteady gait Psych: Anxious, restless Results & Data Vital Signs (Past 12 Hours) Vital Signs Temp Pulse Resp BP BP Pulse Ox 02/25/19 12:21 97.9 F 92 H 16 132/83 146/84 H 97 11/14/19 07:22 97.9 F 92 H 16 132/83 97 PG Care Time/CCT Total # of Minutes Spent Total Time Spent with Patient: Total time spent is greater than 50% in coordination of care (as documented) at patient's floor/unit and/or counseling patient: Time Spent Attending Total time spent 70 minutes with greater than 50% of the time spent at bedside on 2 separate visits assessing patient's level of comfort as well as discussing plan of care with patient's . Collaborated with attending physician as well as hospice nurse.
--- NOTE | 2019-02-27 17:26 | Discharge Summary ---
Date of Service February 27, 2019 Principal Diagnosis Gastric cancer Discharge Exam Constitutional WD/WN, vitals as above Eyes EOM intact bilaterally; no conjunctival abnormality ENMT external ear and nose normal, oropharynx normal Neck trachea midline, no thyromegaly normal visual inspection Respiratory normal respiratory effort, lungs clear to auscultation no respiratory distress Cardiovascular RRR, no murmur, no edema Gastrointestinal (Abdomen) Inspection/Auscultation: abdomen normal to inspection; abdomen not distended Musculoskeletal no cyanosis or clubbing, extremities motor strength 5/5 Skin no rashes, warm and dry Neurologic moves all extremities and awake Psychiatric Orientation: alert, oriented to person and cooperative Discharge Data Allergies Allergy/AdvReac Type Severity Reaction Status Date / Time chlorhexidine Allergy Mild Red and Verified 02/24/19 17:57 itchy skin Consultations 02/24/19 19:07 Consult Physician Stat 02/24/19 19:27 ED Decision to Admit Stat Hospital Course (1) 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 daily Pepcid IV x1 Consult hospice Discussed with family CODE STATUS is DNR/DNI We will keep him comfortable Total Time Total Time Spent Total Time Spent (In Minutes): 45 Discharge Plan Discharge Items Patient Disposition: Hospice - Medical Facility Reason For Visit: INPATIENT HOSPICE Discharge Diagnosis: Esophageal cancer Activity: Resume your previous activity Non-emergency contact: Primary Care Provider Call non-emergency contact if: your pain is not controlled Follow-up/Referrals: Abner Wetzel MD [Primary Care Provider] - Diet: Regular Diet Texture: Pureed (blended smooth) Addtl Attending Provider Instructions: Pending Studies at Discharge: No Stand-Alone Forms: [facility] [employer] Skilled Items Patient informed of condition?: Yes DNR: Yes Discharge Level of Care: Other Communicable Disease: No Discharge Prognosis: Deteriorating Lines: Peripheral IV Urinary Catheter: No Medications and DC Order Prescriptions: Continued quetiapine [Seroquel] 25 mg tablet 25 mg PO QAM RF: 0 quetiapine 25 mg tablet 50 mg PO HS RF: 0 sennosides [senna] 8.6 mg Tablet 8.6 - 17.2 mg PO DAILY PRN (Reason: Constipation) RF: 0 venlafaxine [Effexor XR] 75 mg capsule,extended release 24hr 150 mg PO HS RF: 0 omeprazole 40 mg Capsule,Delayed Release(Dr/Ec) 40 mg PO DAILY RF: 0 magnesium hydroxide [Milk of Magnesia] 400 mg/5 mL Suspension 30 ml PO DAILY PRN (Reason: Constipation) RF: 0 hyoscyamine sulfate [Levsin] 0.125 mg Tablet 0.125 mg PO Q4H PRN (Reason: Secretions) RF: 0 No Action acetaminophen [Mapap (acetaminophen)] 325 mg Tablet 650 mg PO Q4H PRN (Reason: pain) Qty: 1 RF: 0 haloperidol 1 mg Tablet 1 mg PO Q4H PRN (Reason: agitation) Qty: 1 RF: 0 haloperidol 1 mg Tablet 1 mg PO QID Qty: 1 RF: 0 methadone 10 mg tablet 40 mg PO Q12H Qty: 14 RF: 0 oxycodone 15 mg tablet 30 mg PO Q4H PRN (Reason: Pain) Qty: 7 RF: 0 lorazepam [Ativan] 1 mg tablet 1.5 mg PO Q4H PRN (Reason: Anxiety) Qty: 3 RF: 0 Discharge Orders: Discharge Order (Routine); Ordered 02/25/19 Ordered By: Kwesi Caballero Admission Data Admit Date/Time: 02/24/19 19:27 Attending Provider: Kwesi Caballero Admit Provider: Leelee Mane Primary Care Provider: Abner Wetzel Other Providers: Mayuri Curtis ; Kwesi Caballero Other Interventions: Discharge Summary Assessment (RN) Last Done: 02/25/19 12:21 DC Date/Time DO NOT enter until pt leaves facility: 02/25/19 12:23
== END 2019-02-25 12:23 | disposition hospice, inpatient (51) | DRG 951 ==
LOC: ED 17:13 → 4W 19:27 → SUATTDRO 19:27 → 4W 19:41

== ENCOUNTER 2019-02-25 12:23 | Inpatient (IN) ==
[2019-02-25] MEDS ORDERED: ACETAMINOPHEN 325 MG TAB PO PRN (14:00)
[2019-02-25] MEDS ORDERED: ONDANSETRON INJ 2 MG/ML 2 ML VIAL IV PRN (14:00)
--- NOTE | 2019-02-25 14:07 | History & Physical Report ---
Date of Service February 25, 2019 Assessment & Plan (1) Gastric cancer: Admit patient under hospice. - Ativan and morphine IV as needed pain/anxiety - Discussed with Dr. Lomeli - Will work with the hospice team for patient comfort. (2) Comfort measures only status: Minimize vitals, no labs. - As above History of Present Illness Primary Care Provider: Abner Wetzel MD 63-year-old man who presented to his primary care physician on October 2018 with dysphagia to solids more than liquids, EGD at that time showed large fungating mass and biopsies revealed poorly differentiated adenocarcinoma status post left subclavian vein port placement in 12/15/2018, after that patient was placed on hospice at home. Continued to deteriorate, weight loss, generalized weakness, developed some agitation and anxiety and family and hospice nurse decided to bring him to the hospital for GIP as he is going to need frequent IV morphine and Ativan. Discussed with Dr. Lomeli who has been seeing him in the clinic for his cancer. Allergies Allergy/AdvReac Type Severity Reaction Status Date / Time chlorhexidine Allergy Mild Red and Verified 02/24/19 17:57 itchy skin Home Medications Home Medications Medication Instructions Recorded Confirmed Type dexamethasone [Decadron] 4 mg PO QAM 02/24/19 02/24/19 History haloperidol lactate 1 mg PO Q4H PRN 02/24/19 02/24/19 History hyoscyamine sulfate [Levsin] 0.125 mg PO Q4H PRN 02/24/19 02/24/19 History lorazepam [Ativan] 1.5 mg PO Q4H PRN 02/24/19 02/24/19 History magnesium hydroxide [Milk of 30 ml PO DAILY PRN 02/24/19 02/24/19 History Magnesia] methadone 40 mg PO Q12H 02/24/19 02/24/19 History morphine concentrate 5 mg PO Q2H PRN 02/24/19 02/24/19 History omeprazole 40 mg PO DAILY 02/24/19 02/24/19 History oxycodone 30 mg PO Q4H PRN 02/24/19 02/24/19 History quetiapine 50 mg PO HS 02/24/19 02/24/19 History quetiapine [Seroquel] 25 mg PO QAM 02/24/19 02/24/19 History sennosides [senna] 8.6 - 17.2 mg PO DAILY PRN 02/24/19 02/24/19 History venlafaxine [Effexor XR] 150 mg PO HS 02/24/19 02/24/19 History Past Med/Surg History Medical History Acute drug withdrawal syndrome (Resolved) Atrial fibrillation (Chronic) IN THE PAST Chronic pain (Chronic) Degenerative disc disease Failed spinal cord stimulator (Resolved) Gastric cancer Neuropathic pain (Chronic) Port-A-Cath in place Insertion of A-Port, Left Subclavian Vein Dr. Lerma 12-15-18 Stomach ulcer Withdrawal symptoms, drug or narcotic (Resolved) Surgical History Cervical vertebral fusion (Resolved) 2 CERVICAL FUSIONS>02/03/13 - Glidescope #4, ETT #7.5 ROM WNL PER PATIENT Difficult airway for intubation (Chronic) 09/04/15 - Glidescope #4, ETT #8.0, Neck kept in neutral position 02/03/13 - Glidescope #4, ETT #7.5 Fusion of spine (Resolved) LUMBAR FUSION X 1 09/04/15 - Glidescope #4, ETT #8.0, Neck kept in neutral position H/O cardiac radiofrequency ablation (Resolved) 2017 AT [place] FOLLOWS WITH DR. HUBER MENDOZA History of adenoidectomy (Resolved) History of appendectomy (Resolved) History of carpal tunnel release (Resolved) RT/LEFT History of cholecystectomy (Resolved) History of colonoscopy (Resolved) History of esophagogastroduodenoscopy (EGD) (Resolved) History of surgery (Resolved) IMPLANTED PAIN PUMP History of tonsillectomy (Resolved) History of tooth extraction (Resolved) Presence of intrathecal pump (Chronic) 09/15/2018. GETA. Glidescope #4 (elective). Grade 1 view. No issues. S/P appendectomy (~1991) S/P cholecystectomy (~1998) S/P insertion of spinal cord stimulator (Resolved) INSERTION AND REMOVAL Family History Other Heart disease No significant family history Social History Preferred Language: Andorran Communication Ability: Impaired Visual Impairment: No Limitations Hearing Ability: Normal Asphalt Raker Required: No Beliefs That Will Affect Care: None marital status: Current Living Situation: Spouse current occupational status: employed Other Information That Helps Us Care for You: Yes (needs placement) Feels Safe at Home: Yes Safety Concerns: Feels Safe At This Time Smoking Status: Never smoker Tobacco Type: cigarettes ; Do You Dip or Chew Tobacco: No ; Second Hand Exposure: No ; Tobacco Cessation Education Requested by Patient: No Hx Alcohol Use: No Hx Substance Use: No Review of Systems Review of Systems: Unobtainable due to cognitive status Physical Exam Constitutional: + acute distress and + frail appearing; + uncomfortable Eyes: EOM intact bilaterally; no conjunctival abnormality ENMT: external ear and nose normal, oropharynx normal Neck: trachea midline, no thyromegaly normal visual inspection Respiratory: normal respiratory effort, lungs clear to auscultation no respiratory distress Cardiovascular: RRR, no murmur, no edema Gastrointestinal (Abdomen): Inspection/Auscultation: abdomen normal to inspection; abdomen not distended Musculoskeletal: no cyanosis or clubbing, extremities motor strength 5/5 Skin: no rashes, warm and dry Neurologic: moves all extremities and awake Psychiatric: Orientation: alert, oriented to person, oriented to time and cooperative; + not oriented to place Eye Contact: good eye contact Affect: + anxious affect and + tearful affect Code Status & VTE Plan VTE Prophylaxis Plan VTE Prophylaxis will be ordered: No PG Care Time/CCT Total # of Minutes Spent Total Time Spent with Patient: Total time spent is greater than 50% in coordination of care (as documented) at patient's floor/unit and/or counseling patient:
--- NOTE | 2019-02-25 14:08 | Discharge Summary ---
Date of Service February 25, 2019 Admission HPI Per Admitting Provider 63-year-old man who presented to his primary care physician on October 2018 with dysphagia to solids more than liquids, EGD at that time showed large fungating mass and biopsies revealed poorly differentiated adenocarcinoma status post left subclavian vein port placement in 12/15/2018, after that patient was placed on hospice at home. Continued to deteriorate, weight loss, generalized weakness, developed some agitation and anxiety and family and hospice nurse decided to bring him to the hospital for GIP as he is going to need frequent IV morphine and Ativan. Discussed with Dr. Lomeli who has been seeing him in the clinic for his cancer. Principal Diagnosis Gastric cancer Discharge Exam Constitutional + acute distress and + frail appearing; + uncomfortable Eyes EOM intact bilaterally; no conjunctival abnormality ENMT external ear and nose normal, oropharynx normal Neck trachea midline, no thyromegaly normal visual inspection Respiratory normal respiratory effort, lungs clear to auscultation no respiratory distress Cardiovascular RRR, no murmur, no edema Gastrointestinal (Abdomen) Inspection/Auscultation: abdomen normal to inspection; abdomen not distended Musculoskeletal no cyanosis or clubbing, extremities motor strength 5/5 Skin no rashes, warm and dry Neurologic moves all extremities and awake Psychiatric Orientation: alert, oriented to person, oriented to time and cooperative; + not oriented to place Eye Contact: good eye contact Affect: + anxious affect and + tearful affect Discharge Data Allergies Allergy/AdvReac Type Severity Reaction Status Date / Time chlorhexidine Allergy Mild Red and Verified 02/24/19 17:57 itchy skin Hospital Course (1) Gastric cancer: Discharge patient to admit under hospice. - Ativan and morphine IV as needed pain/anxiety - Discussed with Dr. Lomeli - Will work with the hospice team for patient comfort. (2) Comfort measures only status: Minimize vitals, no labs. - As above Total Time Total Time Spent Total Time Spent (In Minutes): 25 Discharge Plan Discharge Items Reason For Visit: INPATIENT HOSPICE Follow-up/Referrals: Abner Wetzel MD [Primary Care Provider] - Medications and DC Order Prescriptions: No Action quetiapine [Seroquel] 25 mg tablet 25 mg PO QAM RF: 0 quetiapine 25 mg tablet 50 mg PO HS RF: 0 sennosides [senna] 8.6 mg Tablet 8.6 - 17.2 mg PO DAILY PRN (Reason: Constipation) RF: 0 venlafaxine [Effexor XR] 75 mg capsule,extended release 24hr 150 mg PO HS RF: 0 morphine concentrate 100 mg/5 mL (20 mg/mL) solution 5 mg PO Q2H PRN (Reason: Pain) RF: 0 methadone 10 mg tablet 40 mg PO Q12H RF: 0 omeprazole 40 mg Capsule,Delayed Release(Dr/Ec) 40 mg PO DAILY RF: 0 oxycodone 15 mg tablet 30 mg PO Q4H PRN (Reason: Pain) RF: 0 magnesium hydroxide [Milk of Magnesia] 400 mg/5 mL Suspension 30 ml PO DAILY PRN (Reason: Constipation) RF: 0 hyoscyamine sulfate [Levsin] 0.125 mg Tablet 0.125 mg PO Q4H PRN (Reason: Secretions) RF: 0 dexamethasone [Decadron] 4 mg tablet 4 mg PO QAM RF: 0 lorazepam [Ativan] 1 mg tablet 1.5 mg PO Q4H PRN (Reason: Anxiety) RF: 0 haloperidol lactate 2 mg/mL concentrate 1 mg PO Q4H PRN (Reason: Agitation/Nausea/Vomiting) RF: 0 Admission Data Admit Date/Time: 02/25/19 12:23 Attending Provider: Kwesi Caballero Admit Provider: Leelee Mane Primary Care Provider: Abner Wetzel Other Providers: Moise Turner [facility]
[2019-02-25] MEDS ORDERED: METHADONE HCL 5 MG TAB PO SCH (14:15)
[2019-02-25] MEDS ORDERED: LORazepam 1 MG TAB PO PRN (14:26)
[2019-02-25] MEDS: OXYCODONE HCL IR 30 MG TAB (IMMEDIATE RELEASE) PO PRN (14:36)
[2019-02-25] MEDS: METHADONE HCL 10 MG TAB PO SCH ×2 (15:26→23:03)
[2019-02-25] MEDS ORDERED: HALOPERIDOL 1 MG TAB PO PRN ×2 (16:03→17:15)
[2019-02-25] MEDS ORDERED: LORazepam 1 MG/2 ML VIAL IV PRN (17:15)
[2019-02-25] MEDS: LORazepam 1 MG TAB PO SCH ×2 (18:28→22:29)
[2019-02-25] MEDS: HALOPERIDOL 1 MG TAB PO SCH (20:08)
[2019-02-25] MEDS: QUETIAPINE FUMARATE 25 MG TABLET PO SCH (20:09)
[2019-02-25] MEDS: VENLAFAXINE HCL XR 150 MG CAPXR PO SCH (20:09)
[2019-02-25] MEDS ORDERED: QUETIAPINE FUMARATE 25 MG TABLET PO SCH (21:00)
[2019-02-26] MEDS: OXYCODONE HCL IR 30 MG TAB (IMMEDIATE RELEASE) PO PRN ×3 (00:24→15:23)
[2019-02-26] MEDS: LORazepam 1 MG TAB PO SCH ×6 (02:43→22:27)
[2019-02-26] MEDS: HALOPERIDOL 1 MG TAB PO SCH ×4 (07:57→20:18)
[2019-02-26] MEDS: QUETIAPINE FUMARATE 25 MG TABLET PO SCH ×2 (07:57→20:18)
[2019-02-26] MEDS: METHADONE HCL 10 MG TAB PO SCH ×2 (08:00→20:18)
--- NOTE | 2019-02-26 11:07 | Palliative Care Progress Note ---
Date of Service February 26, 2019 Assessment & Plan (1) Comfort measures only status: -Patient is calm today. He does seem somewhat confused and had a hard time answering some questions. -Patient's pain is currently under control, as well as his agitation. -Awaiting placement into SNF-- case management following. (2) Cancer associated pain: (3) Gastric cancer: (4) Combative behavior: Subjective Patient drowsy, falling asleep while sitting up in chair. Calm and cooperative at this time. Review of Systems Review of Systems: Denies pain, SOB, N/V, anxiety. Physical Exam Constitutional: + frail appearing and comfortable; no acute distress ENMT: external ear and nose normal, oropharynx normal Respiratory: normal respiratory effort, lungs clear to auscultation Cardiovascular: RRR, no murmur, no edema Gastrointestinal (Abdomen): Inspection/Auscultation: abdomen normal to inspection Neurologic: moves all extremities and awake Psychiatric: Orientation: cooperative; + not oriented to place Results & Data Vital Signs (Past 12 Hours) Vital Signs Temp Pulse Resp BP Pulse Ox 02/26/19 00:16 36.9 C 72 18 138/75 95 Supervising Physician Co-Signing Physician Notes Patient briefly seen and examined-patient calm, no acute distress. No family at bedside. Patient's pain and anxiety have been well controlled at home on current medications until patient starts to refuse medications managed by his . PE: Patient calm, no acute distress Respirations: Unlabored CV: Regular rate, no edema Abdomen: Not distended Neuro: Confused, less anxious on exam Agree with above note, assessment and plan as per TIFFANY Mcgee-we will continue to follow and collaborate with hospice agency in case management regarding placement and symptom management. PG Care Time/CCT Total # of Minutes Spent Total Time Spent with Patient: Total time spent is greater than 50% in coordination of care (as documented) at patient's floor/unit and/or counseling patient: Time Spent Midlevel 25 minutes with >50% of the time spent at bedside with patient and IDT discussing plan of care.
--- NOTE | 2019-02-26 14:23 | Hospitalist Progress Note ---
Date of Service February 26, 2019 Assessment & Plan (1) Gastric cancer: Admitted under hospice for inability to cope at home due to agitation and confusion. - Ativan IV and oxycodone as needed pain/anxiety - Discussed with Dr. Lomeli - Will work with the hospice team for patient comfort. - Plan for [facility] if able. (2) Comfort measures only status: Minimize vitals, no labs. - As above Subjective Quite lethargic on my exam. Able to open eyes and moan, but otherwise, no really cognizant respond. Review of Systems Review of Systems: Unobtainable due to cognitive status Physical Exam Constitutional: + frail appearing and comfortable; no acute distress Eyes: EOM intact bilaterally; no conjunctival abnormality ENMT: external ear and nose normal, oropharynx normal Neck: trachea midline, no thyromegaly normal visual inspection Respiratory: normal respiratory effort, lungs clear to auscultation no respiratory distress Cardiovascular: RRR, no murmur, no edema Gastrointestinal (Abdomen): Inspection/Auscultation: abdomen normal to inspection; abdomen not distended Musculoskeletal: no cyanosis or clubbing, extremities motor strength 5/5 Skin: no rashes, warm and dry Neurologic: moves all extremities and awake Psychiatric: Orientation: cooperative; + not alert, + not oriented to person, + not oriented to place and + not oriented to time Eye Contact: + not good eye contact Affect: no anxious affect PG Care Time/CCT Total # of Minutes Spent Total Time Spent with Patient: Total time spent is greater than 50% in coordination of care (as documented) at patient's floor/unit and/or counseling patient:
[2019-02-26] MEDS: VENLAFAXINE HCL XR 150 MG CAPXR PO SCH (20:18)
[2019-02-27] MEDS: LORazepam 1 MG TAB PO SCH ×3 (02:25→10:00)
[2019-02-27] MEDS: OXYCODONE HCL IR 30 MG TAB (IMMEDIATE RELEASE) PO PRN (02:51)
[2019-02-27] MEDS: METHADONE HCL 10 MG TAB PO SCH (08:14)
[2019-02-27] MEDS: HALOPERIDOL 1 MG TAB PO SCH (08:14)
[2019-02-27] MEDS: QUETIAPINE FUMARATE 25 MG TABLET PO SCH (08:14)
--- NOTE | 2019-02-27 15:20 | Discharge Summary ---
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 Continued to deteriorate, weight loss, generalized weakness, developed some agitation and anxiety and family and hospice nurse decided to bring him to the hospital for GIP as he is going to need frequent IV morphine and Ativan. Discussed with Dr. Lomeli who has been seeing him in the clinic for his cancer. Principal Diagnosis Gastric cancer Discharge Exam Constitutional + frail appearing and comfortable; no acute distress Eyes EOM intact bilaterally; no conjunctival abnormality ENMT external ear and nose normal, oropharynx normal Neck trachea midline, no thyromegaly normal visual inspection Respiratory normal respiratory effort, lungs clear to auscultation no respiratory distress Cardiovascular RRR, no murmur, no edema Gastrointestinal (Abdomen) Inspection/Auscultation: abdomen normal to inspection; abdomen not distended Musculoskeletal no cyanosis or clubbing, extremities motor strength 5/5 Skin no rashes, warm and dry Neurologic moves all extremities and awake Psychiatric Orientation: cooperative; + not alert, + not oriented to person, + not oriented to place and + not oriented to time Eye Contact: + not good eye contact Affect: no anxious affect Discharge Data Allergies Allergy/AdvReac Type Severity Reaction Status Date / Time chlorhexidine Allergy Mild Red and Verified 02/24/19 17:57 itchy skin Hospital Course (1) Gastric cancer: Admitted under hospice for inability to cope at home due to agitation and confusion. - Ativan IV and oxycodone as needed pain/anxiety - Discussed with Dr. Lomeli - Will work with the hospice team for patient comfort. (2) Comfort measures only status: Minimize vitals, no labs. - As above Total Time Total Time Spent Total Time Spent (In Minutes): 35 Discharge Plan Discharge Items Patient Disposition: Hospice - Medical Facility Reason For Visit: INPATIENT HOSPICE Discharge Diagnosis: Gastric cancer Activity: Resume your previous activity Non-emergency contact: Primary Care Provider Call non-emergency contact if: your symptoms worsen, your pain is not controlled and your pain is worsening Follow-up/Referrals: Abner Wetzel MD [Primary Care Provider] - Diet: Regular Addtl Attending Provider Instructions: Pending Studies at Discharge: No Stand-Alone Forms: [facility] Skilled Items Patient informed of condition?: Yes DNR: Yes Discharge Level of Care: Skilled Communicable Disease: No Discharge Prognosis: Stable Lines: None Urinary Catheter: No Medications and DC Order Prescriptions: New acetaminophen [Mapap (acetaminophen)] 325 mg Tablet 650 mg PO Q4H PRN (Reason: pain) Qty: 1 RF: 0 haloperidol 1 mg Tablet 1 mg PO Q4H PRN (Reason: agitation) Qty: 1 RF: 0 haloperidol 1 mg Tablet 1 mg PO QID Qty: 1 RF: 0 Continued quetiapine [Seroquel] 25 mg tablet 25 mg PO QAM RF: 0 quetiapine 25 mg tablet 50 mg PO HS RF: 0 sennosides [senna] 8.6 mg Tablet 8.6 - 17.2 mg PO DAILY PRN (Reason: Constipation) RF: 0 venlafaxine [Effexor XR] 75 mg capsule,extended release 24hr 150 mg PO HS RF: 0 omeprazole 40 mg Capsule,Delayed Release(Dr/Ec) 40 mg PO DAILY RF: 0 magnesium hydroxide [Milk of Magnesia] 400 mg/5 mL Suspension 30 ml PO DAILY PRN (Reason: Constipation) RF: 0 hyoscyamine sulfate [Levsin] 0.125 mg Tablet 0.125 mg PO Q4H PRN (Reason: Secretions) RF: 0 methadone 10 mg tablet 40 mg PO Q12H Qty: 14 RF: 0 oxycodone 15 mg tablet 30 mg PO Q4H PRN (Reason: Pain) Qty: 7 RF: 0 lorazepam [Ativan] 1 mg tablet 1.5 mg PO Q4H PRN (Reason: Anxiety) Qty: 3 RF: 0 Discontinued morphine concentrate 100 mg/5 mL (20 mg/mL) solution 5 mg PO Q2H PRN (Reason: Pain) RF: 0 dexamethasone [Decadron] 4 mg tablet 4 mg PO QAM RF: 0 haloperidol lactate 2 mg/mL concentrate 1 mg PO Q4H PRN (Reason: Agitation/Nausea/Vomiting) RF: 0 Discharge Orders: Discharge Order (Routine); Ordered 02/27/19 Ordered By: Kwesi Caballero Admission Data Admit Date/Time: 02/25/19 12:23 Attending Provider: Kwesi Caballero Admit Provider: Leelee Mane Primary Care Provider: Abner Wetzel Other Providers: Moise Turner [place] Other Interventions: Discharge Summary Assessment (RN) Last Done: 02/27/19 09:43 DC Date/Time DO NOT enter until pt leaves facility: 02/27/19 11:02
== END 2019-02-27 11:02 | disposition hospice, inpatient (51) | DRG 951 ==
LOC: 4W 12:23